=== PATIENT | female | born 1975 | race Caucasian/White ===

== ENCOUNTER → 2016-10-17 | Outpatient (REF) | payer OTHER | LOC: M SFHCWAGY 14:05 | PROVIDERS: ATTEND Nurse Practitioner Family | DX: Z12.4 Encounter for screening for malignant neoplasm of cervix (principal) ==

== ENCOUNTER → 2016-10-27 | Outpatient (CLI) | payer OTHER ==
[~2016-10-27] MED LIST: BACL-67 PO; HYDR-3716 PO; LYRI200C PO; MAGN400C3 PO; MELO15TA4 PO; OMEP40CA2 PO; POLYBTL FT; VITA200028 PO; ZONI100C2 PO
--- NOTE | 2016-10-27 11:37 | REPMRS ---
Patient History The patient states she had a clinical breast exam in 10/2016. No known family history of cancer. Digital Woman Screen Mammo: October 27, 2016 - Exam #: [id number] Bilateral CC and MLO view(s) were taken. Technologist: Xi Carranzaologist FINDINGS: There are scattered fibroglandular densities. There is no evidence of cancer on this mammogram. ASSESSMENT: BI-RADS/ACR category 2 mammogram. Benign finding(s). Recommendation Routine screening mammogram of both breasts in 1 year (for women over age 40). This mammogram was interpreted with the aid of an FDA-approved computer-aided dectection system. Electronically Signed By: Tesfaye Curtis MD 10/27/16 0707
--- NOTE | 2016-10-28 04:26 | REP ---
Clinical: Dyspareunia and pelvic pain . Technique: Transabdominal pelvic ultrasound followed by transvaginal examination for better evaluation of the endometrium and adnexa with color Doppler evaluation of the ovaries. Findings: Bladder is unremarkable and measures 10.6 x 8.8 x 5.3 cm . Heterogeneous anteverted uterus measures 6.8 x 2.7 x 4.3 cm with 2.7 cm posterior intramural fibroid and 1.6 cm anterior intramural fibroid. The endometrial complex measures 7.1 mm thickness. Subcentimeter Nabothian cysts noted. Bilateral ovaries are normal in appearance and vascularity without evidence for torsion. Right ovary measures 4.6 x 2.6 x 3.3 cm with 3.1 cm cyst ; R I = 0.51 . Left ovary measures 2.0 x 1.0 x 1.7 cm ; R I = 0.48. No pelvic fluid or adnexal mass lesion. . Impression: 1. Intramural fibroids as described above. 2. Otherwise normal pelvic ultrasound. Signed by Francisco Malin MD 10/28/2016 04:17 A
== END ==
LOC: M WHC 09:50
PROVIDERS: ATTEND Nurse Practitioner Family
DX: Z12.31 Encounter for screening mammogram for malignant neoplasm of breast (principal); N94.10 Unspecified dyspareunia; R10.2 Pelvic and perineal pain
CPT/HCPCS: 76830; 76856; G0202

== ENCOUNTER → 2016-10-28 | Outpatient (CLI) | payer OTHER ==
[~2016-10-28] VITALS: Ht 160 cm; Wt 107.0 kg
[~2016-10-28] MED LIST changes: +LIDOCAINE 2% INJ 100 MG/5 ML SDV (FOR ANES.) As Ordered ONE; +NS 1,000 ML IV ONE; +PROPOFOL 500 MG/50 ML VIAL As Ordered ONE
--- NOTE | 2016-10-28 13:41 | ROOR ---
Patient Name: Alice See Procedure Date: 10/28/2016 1:30 PM Date of : 1975 Age: 40 Room: [facility] Gender: Female Note Status: Finalized Procedure: Upper GI endoscopy Indications: Heartburn, Failure to respond to medical treatment, Suspected gastroparesis Providers: Fredrick GA MD Referring MD: Ludmila Grullon Requesting Provider: Medicines: Monitored Anesthesia Care Complications: No immediate complications. Procedure: Pre-Anesthesia Assessment: - The heart rate, respiratory rate, oxygen saturations, blood pressure, adequacy of pulmonary ventilation, and response to care were monitored throughout the procedure. The Endoscope was introduced through the mouth, and advanced to the second part of duodenum. The upper GI endoscopy was accomplished without difficulty. The patient tolerated the procedure well. Findings: The esophagus was normal. The stomach was normal. The examined duodenum was normal. Bilious fluid was found in the entire examined stomach. Impression: - Normal esophagus. - Normal stomach. (long, compliant but normal, Bilious gastric fluid.) - Normal examined duodenum. - No specimens collected. Recommendation: - Use Prilosec (omeprazole) 40 mg PO BID. - Use sucralfate tablets 1 gram PO QID. - (the script was sent to your pharmacy on file) - Gastroparesis diet: - Eat smaller, more frequent meals throughout the day. - Low fat diet. - Liquid/soft foods are tolerated better than solid foods. - Low fiber/well cooked vegetables are tolerated better than high fiber/fibrous foods/raw vegetables. - Avoid medications that inhibit gastric/intestinal motility such as narcotic medications. Fredrick Ga MD Fredrick GA MD 10/28/2016 1:40:29 PM This report has been signed electronically. Number of Addenda: 0 Note Initiated On: 10/28/2016 1:30 PM Estimated Blood Loss: Estimated blood loss: none.
[2016-10-28 13:55] VITALS: BP 123/76
== END | disposition home or self-care (01) ==
LOC: M OPP 12:09
PROVIDERS: ATTEND Internal Medicine Gastroenterology
DX: R12 Heartburn (principal); M19.90 Unspecified osteoarthritis, unspecified site; M79.7 Fibromyalgia; G43.909 Migraine, unspecified, not intractable, without status migrainosus; G47.30 Sleep apnea, unspecified; R06.83 Snoring; K21.9 Gastro-esophageal reflux disease without esophagitis; F17.210 Nicotine dependence, cigarettes, uncomplicated; Z79.899 Other long term (current) drug therapy; Z80.9 Family history of malignant neoplasm, unspecified; G56.00 Carpal tunnel syndrome, unspecified upper limb

== ENCOUNTER → 2017-02-08 | Outpatient (CLI) | payer OTHER ==
[~2017-02-08] MED LIST changes: -BACL-67 PO; +BACL1TAB9 PO; -LIDOCAINE 2% INJ 100 MG/5 ML SDV (FOR ANES.) As Ordered ONE; -NS 1,000 ML IV ONE; -PROPOFOL 500 MG/50 ML VIAL As Ordered ONE
--- NOTE | 2017-02-08 17:43 | REP ---
LEFT KNEE SERIES: Five views of the left knee are performed. There is no acute fracture or dislocation. There is a small spur of the lateral patellar facet. There is no joint effusion. IMPRESSION: Mild spurring lateral patellar facet. Signed by Tesfaye Curtis MD 02/09/2017 08:58 A
== END ==
LOC: M RAD 14:07
PROVIDERS: ATTEND Physician Assistant Medical
DX: M25.562 Pain in left knee (principal)

== ENCOUNTER → 2017-06-06 | Outpatient (CLI) | payer OTHER ==
--- NOTE | 2017-06-07 14:36 | REP ---
Clinical: Follow up ovarian cyst. Comparison: 10/27/2016. Technique: Transabdominal pelvic ultrasound followed by transvaginal examination for better evaluation of the endometrium and adnexa with color Doppler evaluation of the ovaries. Findings: Bladder is unremarkable and measures 10.6 x 6.2 x 11.1 cm. Anteverted uterus measures 7.2 x 3.5 x 3.2 cm and includes 1.8 cm posterior intramural fibroid. Endometrial complex is unremarkable and measures 5.4 mm thickness. Bilateral ovaries are normal in appearance and vascularity without torsion or significant cyst. Right ovary measures 2.7 x 1.6 x 1.5 cm; RI 0.50. Left ovary measures 2.6 x 1.5 x 1.6 cm; RI 0.48. Impression: 1. A 1.8 cm posterior intramural fibroid. 2. Otherwise normal examination and the previously identified ovarian cyst has resolved. Signed by Francisco Malin MD 06/07/2017 02:38 A
== END ==
LOC: M WHC 13:37
PROVIDERS: ATTEND Nurse Practitioner Family
DX: N83.209 Unspecified ovarian cyst, unspecified side (principal)

== ENCOUNTER → 2017-11-29 | Outpatient (REF) | payer OTHER ==
[2017-11-29 19:04] LABS: AMORPHOUS SEDIMENT MODERATE (NEGATIVE); APPEARANCE, URINE TURBID (CLEAR); BACTERIA, URINE AUTO NEGATIVE (NEGATIVE); BILIRUBIN, URINE AUTO NEGATIVE (NEGATIVE); BLOOD, URINE BLOOD NEGATIVE (NEGATIVE); COLOR, URINE YELLOW (YELLOW); GLUCOSE, URINE (UA) AUTO NEGATIVE (NEGATIVE); KETONE, URINE AUTO NEGATIVE (NEGATIVE); LEUKOCYTE ESTERASE, URINE AUTO NEGATIVE (NEGATIVE); NITRITE, URINE AUTO NEGATIVE (NEGATIVE); PROTEIN, URINE AUTO NEGATIVE (NEGATIVE); RBC, URINE AUTO 2 /HPF (0-3); SPECIFIC GRAVITY URINE AUTO 1.021 (1.002-1.035); SQUAMOUS EPITHELIAL CELL UR AU 4 /HPF (0-6); TRIPLE PHOSPHATE CRYSTALS SMALL; UROBILINOGEN, URINE AUTO 0.2 mg/dL (0.0-2.0); WBC, URINE AUTO 0 /HPF (0-3)
[2017-11-29 19:26] LABS: TOTAL 25(OH) VITAMIN D 107.2 NG/ML (30.0-100.0)
[2017-11-29 19:45] LABS: ALBUMIN 3.2 GM/DL (3.2-5.2); ALKALINE PHOSPHATASE 63 U/L (45-117); ALT/SGPT 13 U/L (12-78); ANION GAP 8 MEQ/L (8-16); AST/SGOT 9 U/L (7-37); BILIRUBIN,TOTAL 0.2 MG/DL (0.2-1.0); BLOOD UREA NITROGEN 22 MG/DL (7-18); C REACTIVE PROTEIN QUANTITATIV 1.32 MG/DL (0.00-0.30); CARBON DIOXIDE LEVEL 23 MEQ/L (21-32); CHLORIDE LEVEL 115 MEQ/L (98-107); CHOLESTEROL LEVEL 203 MG/DL (<200); CHOLESTEROL RISK RATIO 3.903 (<5); CREATININE FOR GFR 0.86 MG/DL (0.55-1.30); GLOMERULAR FILTRATION RATE > 60.0 (>58); GLUCOSE, FASTING 88 MG/DL (70-100); HDL CHOLESTEROL 52 MG/DL (>40); NON-HDL-C 151 MG/DL; POTASSIUM SERUM 4.8 MEQ/L (3.5-5.1); SODIUM LEVEL 146 MEQ/L (136-145); TOTAL PROTEIN 6.4 GM/DL (6.4-8.2); TRIGLYCERIDES LEVEL 70 MG/DL (<150)
[2017-11-29 20:31] LABS: ERYTHROCYTE SEDIMENTATION RATE 41 mm/hr (0-20)
== END ==
LOC: M LAB REF 16:46
DX: M79.89 Other specified soft tissue disorders (principal)

== ENCOUNTER → 2017-12-08 | Outpatient (CLI) | payer OTHER ==
[2017-12-08 11:41] LABS: RHEUMATOID FACTOR QUANT < 10.0 IU/ML (<15.0)
[2017-12-08 12:34] LABS: ERYTHROCYTE SEDIMENTATION RATE 37 mm/hr (0-20)
[2017-12-10 09:18] LABS: CYCLIC CITRULLINATED PEPTIDE 7 units (0-19)
[2017-12-10 09:18] LABS: ANTI DOUBLE STRAND-DNA AB 1 IU/mL (0-9); ANTINUCLEAR ANTIBODIES DIRECT Negative (Negative)
== END ==
LOC: M LAB 10:11
DX: R70.0 Elevated erythrocyte sedimentation rate (principal)
CPT/HCPCS: 36415

== ENCOUNTER → 2017-12-19 | Outpatient (CLI) | payer OTHER ==
[2017-12-19 11:46] LABS: ALBUMIN 3.2 GM/DL (3.2-5.2); ALBUMIN/GLOBULIN RATIO 0.94 (1.00-1.93); ALKALINE PHOSPHATASE 65 U/L (45-117); ALT/SGPT 16 U/L (12-78); ANION GAP 9 MEQ/L (8-16); AST/SGOT 9 U/L (7-37); BILIRUBIN,TOTAL 0.1 MG/DL (0.2-1.0); BLOOD UREA NITROGEN 25 MG/DL (7-18); CALCIUM LEVEL 8.2 MG/DL (8.5-10.1); CARBON DIOXIDE LEVEL 23 MEQ/L (21-32); CHLORIDE LEVEL 112 MEQ/L (98-107); CREATININE FOR GFR 0.96 MG/DL (0.55-1.30); GLOMERULAR FILTRATION RATE > 60.0 (>58); GLUCOSE, FASTING 87 MG/DL (70-100); POTASSIUM SERUM 4.4 MEQ/L (3.5-5.1); SODIUM LEVEL 144 MEQ/L (136-145); TOTAL PROTEIN 6.6 GM/DL (6.4-8.2)
[2017-12-20 11:20] LABS: HEPATITIS C VIRUS ABY INDEX 0.1 INDEX (<0.8)
== END ==
LOC: M LAB 10:19
DX: R70.0 Elevated erythrocyte sedimentation rate (principal)
CPT/HCPCS: 73630

== ENCOUNTER 2018-01-18 17:56 | Emergency (ER) | payer OTHER ==
[2018-01-18 21:18] LABS: BASO % 0.5 % (0.0-1.0); EOS # 0.3 10^3/uL (0.0-0.50); EOS % 3.2 % (0.0-3.0); HEMATOCRIT 38.2 % (36.0-47.0); HEMOGLOBIN 12.2 g/dl (12.0-15.5); IMMATURE GRANULOCYTE % 0.1 % (0-3.0); LYMPH # 2.3 10^3/uL (1.5-4.5); LYMPH % 28.3 % (24.0-44.0); MEAN CORPUSCULAR HEMOGLOBIN 29.6 pg (27.0-33.0); MEAN CORPUSCULAR HGB CONC 31.9 g/dl (32.0-36.5); MEAN CORPUSCULAR VOLUME 92.7 fl (80.0-96.0); MONO # 0.6 10^3/uL (0.0-0.8); MONO % 7.1 % (0.0-5.0); NEUTROPHILS # 4.9 10^3/uL (1.8-7.7); NEUTROPHILS % 60.8 % (36.0-66.0); PLATELET COUNT, AUTOMATED 203 10^3/uL (150-450); RED BLOOD COUNT 4.12 10^6/uL (4.00-5.40); RED CELL DISTRIBUTION WIDTH 14.5 % (11.5-14.5)
[2018-01-18 21:32] LABS: INR 0.98; PROTHROMBIN TIME 13.1 SECONDS (12.1-14.4)
[2018-01-18 21:33] LABS: PARTIAL THROMBOPLASTIN TIME 30.1 SECONDS (25.4-37.6)
[2018-01-18 21:42] LABS: AMORPHOUS SEDIMENT RFX LARGE (NEGATIVE); KETONE, URINE AUTO RFX NEGATIVE (NEGATIVE); LEUKOCYTE ESTERASE UR AUTO RFX NEGATIVE (NEGATIVE); NITRITE, URINE AUTO RFX NEGATIVE (NEGATIVE); RBC, URINE AUTO RFX 2 /HPF (0-3); SPECIFIC GRAVITY UR AUTO RFX 1.018 (1.002-1.035); SQUAM EPITHELIAL CELL UR AURFX 1 /HPF (0-6); WBC, URINE AUTO RFX 3 /HPF (0-3)
[2018-01-18 21:46] LABS: ALBUMIN 3.1 GM/DL (3.2-5.2); ALBUMIN/GLOBULIN RATIO 0.91 (1.00-1.93); ALKALINE PHOSPHATASE 67 U/L (45-117); ALT/SGPT 20 U/L (12-78); ANION GAP 5 MEQ/L (8-16); AST/SGOT 14 U/L (7-37); BILIRUBIN,DIRECT < 0.1 MG/DL (0.0-0.2); BILIRUBIN,TOTAL 0.2 MG/DL (0.2-1.0); BLOOD UREA NITROGEN 22 MG/DL (7-18); C REACTIVE PROTEIN QUANTITATIV 1.07 MG/DL (0.00-0.30); CALCIUM LEVEL 8.4 MG/DL (8.5-10.1); CARBON DIOXIDE LEVEL 28 MEQ/L (21-32); CHLORIDE LEVEL 111 MEQ/L (98-107); CREATININE FOR GFR 0.96 MG/DL (0.55-1.30); GLOMERULAR FILTRATION RATE > 60.0 (>58); GLUCOSE, FASTING 111 MG/DL (70-100); SODIUM LEVEL 144 MEQ/L (136-145); TOTAL PROTEIN 6.5 GM/DL (6.4-8.2)
[2018-01-18 21:55] LABS: ERYTHROCYTE SEDIMENTATION RATE 30 mm/hr (0-20)
== END 2018-01-18 22:29 | disposition home or self-care (01) ==
LOC: M ED 17:56
DX: N30.01 Acute cystitis with hematuria (principal); J45.909 Unspecified asthma, uncomplicated; J44.9 Chronic obstructive pulmonary disease, unspecified; E78.5 Hyperlipidemia, unspecified; F41.9 Anxiety disorder, unspecified; F32.9 Major depressive disorder, single episode, unspecified; E03.9 Hypothyroidism, unspecified; M54.9 Dorsalgia, unspecified; M79.7 Fibromyalgia; Z72.0 Tobacco use; Z79.899 Other long term (current) drug therapy
CPT/HCPCS: 80076

== ENCOUNTER → 2018-02-08 | Outpatient (CLI) | payer OTHER | LOC: M WUC 15:07 | DX: S80.01XA Contusion of right knee, initial encounter (principal); M25.572 Pain in left ankle and joints of left foot; M17.11 Unilateral primary osteoarthritis, right knee; X58.XXXA Exposure to other specified factors, initial encounter; Y92.9 Unspecified place or not applicable | CPT/HCPCS: 73564 ==

== ENCOUNTER → 2018-05-17 | Outpatient (REF) | payer OTHER ==
[2018-05-23 10:11] LABS: AMPHETAMINE SCREEN, URINE Negative ng/mL (Cutoff=1000); BARBITURATES SCREEN, URINE Negative ng/mL (Cutoff=200); BENZODIAZEPINES, URINE SCREEN Negative ng/mL (Cutoff=200); CANNABINOID SCREEN, URINE Negative ng/mL (Cutoff=20); COCAINE SCREEN, URINE Negative ng/mL (Cutoff=300); CODEINE, URINE Negative (Cutoff=100); CREATININE, URINE 92.7 mg/dL (20.0-300.0); FENTANYL URINE SCREEN Negative pg/mL (Cutoff=2000); HYDROCODONE CONFIRM, URINE 1500 ng/mL (Cutoff=100); HYDROCODONE, URINE Positive (.); HYDROMORPHONE CONFIRM, URINE 224 ng/mL (Cutoff=100); HYDROMORPHONE, URINE Positive (.); METHADONE, URINE SCREEN Negative ng/mL (Cutoff=300); MORPHINE, URINE Negative (Cutoff=100); OPIATE SCREEN, URINE See Final Results ng/mL (Cutoff=300); OPIATES, URINE Positive ng/mL (Cutoff=300); OXYCODONE, SCREEN, URINE Negative ng/mL (Cutoff=100); PCP SCREEN, URINE Negative ng/mL (Cutoff=25); SPECIFIC GRAVITY, URINE 1.013 (.); pH, URINE 5.6 (4.5-8.9)
== END ==
LOC: M LABNEURO 15:54
DX: G89.4 Chronic pain syndrome (principal)
CPT/HCPCS: 80307

== ENCOUNTER → 2018-11-19 | Outpatient (REF) | payer OTHER ==
[~2018-11-19] MED LIST changes: +ALPR0.25; +AMIT25TA; +CHLO50TA; +DOCQ100C5; +FURO40TA2; +HYDR-3716; +HYDROCODON; +LEVO25TA5; +MAG400TA; +MELO15TA28 PO; -MELO15TA4 PO; +POLY33503; +POLY33504 FT; -POLYBTL FT; +SERT-138; +VENTAER; +VITA50005; +ZOLP10TA2
[2018-11-19 23:25] LABS: CHLAMYDIA DNA AMPLIFICATION NEGATIVE (NEGATIVE); GC DNA AMPLIFICATION NEGATIVE (NEGATIVE)
[2018-11-22 14:51] LABS: HPV HYBRID CAPTURE II Negative (Negative)
== END ==
LOC: M SFHCWAGY 15:20
PROVIDERS: ATTEND Nurse Practitioner Family
DX: Z12.4 Encounter for screening for malignant neoplasm of cervix (principal); Z11.3 Encounter for screening for infections with a predominantly sexual mode of transmission

== ENCOUNTER → 2019-02-06 | Outpatient (REF) ==
--- NOTE | 2019-02-06 10:50 | REP ---
REASON FOR EXAM: Disability determination. COMPARISON EXAM: 05/06/2015. Three views of the lumbar spine again show slight posterior disc space narrowing at every level status quo. There is minimal anterior lipping at every level status quo. Vertebral body height and alignment is within normal limits. It is unchanged. The pedicles are intact bilaterally. IMPRESSION: No significant change from the prior exam. No acute disease is suspected. Chronic changes as described above. Electronically Signed by David Menendez DO 02/06/2019 12:38 P
--- NOTE | 2019-02-06 10:55 | REP ---
RIGHT KNEE, COMPLETE: 02/06/2019. Clinical history: Disability determination. Comparison: 02/08/2018. Findings: Five views provided. There are prominent spurs in the tibial spines. Smaller spurs medial greater than lateral joint margins. No narrowing of the medial or lateral compartments. Patellofemoral joint space narrowing and spur formation noted with the narrowing greater laterally than medially. I see no evidence of fracture, loose body, osteochondral defect or definite joint effusion. There is soft tissue calcifications representing some phleboliths in the proximal calf. Impression: 1. Tricompartment osteoarthritis with narrowing of the patellofemoral joint, no progression since the 02/08/2018 prior exam. No joint effusion, loose body, osteochondral defect or fracture. Electronically Signed by Gerardo Boswell MD 02/06/2019 11:00 A
== END ==
LOC: M SMT 09:43
PROVIDERS: ATTEND Internal Medicine
DX: Z02.71 Encounter for disability determination (principal)

== ENCOUNTER → 2019-04-01 | Outpatient (CLI) | payer OTHER ==
[~2019-04-01] MED LIST changes: -OMEP40CA2 PO; +OMEP40CA97 PO
[2019-04-01 09:41] LABS: HEMATOCRIT 42.1 % (36.0-47.0)
[2019-04-01 09:59] LABS: BASO % 0.3 % (0.0-1.0); EOS # 0.2 10^3/uL (0.0-0.5); EOS % 2.6 % (0.0-3.0); HEMATOCRIT 42.1 % (36.0-47.0); HEMOGLOBIN 14.1 g/dl (12.0-15.5); LYMPH # 2.7 10^3/uL (1.5-5.0); LYMPH % 29.5 % (24.0-44.0); MEAN CORPUSCULAR HEMOGLOBIN 31.1 pg (27.0-33.0); MEAN CORPUSCULAR HGB CONC 33.5 g/dl (32.0-36.5); MEAN CORPUSCULAR VOLUME 92.9 fl (80.0-96.0); MONO # 0.6 10^3/uL (0.0-0.8); MONO % 6.9 % (0.0-5.0); NEUTROPHILS # 5.5 10^3/uL (1.5-8.5); NEUTROPHILS % 60.4 % (36.0-66.0); PLATELET COUNT, AUTOMATED 287 10^3/uL (150-450); RED BLOOD COUNT 4.53 10^6/uL (4.00-5.40); WHITE BLOOD COUNT 9.2 10^3/uL (4.0-10.0)
[2019-04-01 10:24] LABS: HEMOGLOBIN A1c 5.1 %
[2019-04-01 10:30] LABS: ALBUMIN 3.5 GM/DL (3.2-5.2); ALT/SGPT 18 U/L (12-78); BILIRUBIN,TOTAL 0.3 MG/DL (0.2-1.0); BLOOD UREA NITROGEN 13 MG/DL (7-18); CALCIUM LEVEL 8.9 MG/DL (8.5-10.1); CARBON DIOXIDE LEVEL 28 MEQ/L (21-32); CHLORIDE LEVEL 109 MEQ/L (98-107); FERRITIN 23 NG/ML (8-252); GLOMERULAR FILTRATION RATE > 60.0 (>58); GLUCOSE, FASTING 82 MG/DL (70-100); IRON (FE) 62 UG/DL (50-170); MAGNESIUM LEVEL 1.9 MG/DL (1.8-2.4); PERCENT SATURATION 20.1 % (13.2-45.0); PHOSPHORUS LEVEL 3.5 MG/DL (2.5-4.9); POTASSIUM SERUM 3.7 MEQ/L (3.5-5.1); SODIUM LEVEL 142 MEQ/L (136-145); TOTAL IRON BINDING CAPACITY 309 UG/DL (250-450); TOTAL PROTEIN 7.1 GM/DL (6.4-8.2)
[2019-04-01 10:43] LABS: TOTAL 25(OH) VITAMIN D 66.5 NG/ML (30.0-100.0)
[2019-04-01 10:44] LABS: VITAMIN B12 LEVEL 721 PG/ML (247-911)
== END ==
LOC: M LAB 09:13
PROVIDERS: ATTEND Physician Assistant
DX: K91.2 Postsurgical malabsorption, not elsewhere classified (principal); Z98.84 Bariatric surgery status; E55.9 Vitamin D deficiency, unspecified

== ENCOUNTER → 2019-05-06 | Outpatient (CLI) | payer OTHER ==
--- NOTE | 2019-05-06 15:15 | REP ---
PELVIS ULTRASOUND: Real-time sonographic evaluation of the pelvis is performed utilizing transabdominal and endovaginal technique. Urinary bladder is collapsed. The uterus measures 6.4 x 2.9 x 3.6 cm. Endometrium is heterogeneous. A maximum AP thickness is 5 mm. Tiny cystic areas are seen diffusely throughout the endometrium. Junctional zone is not well defined. Findings could represent underlying adenomyosis. Focal hypoechoic area posteriorly in the fundus of the myometrium may represent a fibroid 1.8 x 2.2 x 1.7 cm. Right ovary measures 2.1 x 1.4 x 2.1 cm and left ovary 2.0 x 1.7 x 2.2 cm. There is no adnexal mass or free fluid. No torsion is seen of either ovary with duplex Doppler evaluation. IMPRESSION: Endometrial echo complex is heterogeneous with a maximum AP thickness of 5 mm. Tiny cystic areas are seen throughout the endometrium, a few millimeters in maximum diameter. Junctional zone is not well defined. Findings may represent adenomyosis. Suspect posterior uterine fibroid 1.8 cm in maximum diameter. No adnexal mass or free fluid. Electronically Signed by Tesfaye Curtis MD 05/08/2019 10:21 A
== END ==
LOC: M RAD 12:56
PROVIDERS: ATTEND Nurse Practitioner Family
DX: N93.9 Abnormal uterine and vaginal bleeding, unspecified (principal)

== ENCOUNTER → 2019-06-21 | Outpatient (CLI) | payer OTHER ==
--- NOTE | 2019-06-21 12:50 | REPMRS ---
Patient History The patient states she had a clinical breast exam in 03/2019. No known family history of cancer. No Hormone Replacement Therapy Digital Woman Screen Mammo: June 21, 2019 - Exam #: [id number] Bilateral CC and MLO view(s) were taken. Technologist: Herlinda Jackson, Technologist Prior study comparison: October 27, 2016, digital woman screen mammo performed at [facility]. FINDINGS: There are scattered fibroglandular densities. There has been no change in the appearance of the mammogram from the prior studies. There is a mild amount of scattered fibroglandular density which is fairly symmetric. There is no interval development of dominant mass, architectural distortion, or grouped microcalcification suggestive of malignancy. 3-D tomosynthesis shows no additional findings. Assessment: BI-RADS/ACR category 1 mammogram. Negative Mammogram. Recommendation Routine screening mammogram of both breasts in 1 year (for women over age 40). This patient's Lifetime Breast Cancer Risk is estimated at 8.0 %. This mammogram was interpreted with the aid of an FDA-approved computer-aided dectection system. Electronically Signed By: Fer Shipley MD 06/21/19 [id number]
== END ==
LOC: M WHC 11:11
PROVIDERS: ATTEND Nurse Practitioner Family
DX: Z12.31 Encounter for screening mammogram for malignant neoplasm of breast (principal)

== ENCOUNTER → 2020-07-29 | Outpatient (CLI) | payer OTHER ==
[~2020-07-29] MED LIST changes: -AMIT25TA; +AMIT25TA17; +ATOR40TA75 PO; +CALC250T PO; +FURO40TA2 PO; +HYDR-3719 PO; +LEVO30TA PO; -MAG400TA; +MAGN400T35; +METH-1165 PO; +OMEP-221 PO; +PREG200C PO; +SUMA100T2 PO; +TOPR25TA PO; +TRAZ-189 PO; -VENTAER; +VENTAER INH; +VITMTA PO; +ZONI100C17 PO; -ZONI100C2 PO
== END ==
LOC: M LABSMTC 11:20
PROVIDERS: ATTEND Anesthesiology
DX: Z20.828 Contact with and (suspected) exposure to other viral communicable diseases (principal)

== ENCOUNTER 2020-08-03 06:23 | Day surgery (SDC) | payer OTHER ==
[~2020-08-03] VITALS: Ht 160 cm; Wt 78.5 kg
[~2020-08-03 06:23] MED LIST changes: +LIDOCAINE 1% MDV 20ML VIAL SQ PRN; +LR 1,000 ML IV ONE
--- OUTSIDE RECORDS SUMMARY | 2020-08-03 06:27 | CCD | Continuity of Care Document ---
Author Author Alice HERNANDEZ Organization Unknown Address [address] [place] [address] Phone [phone] Care Team Providers Care Microsoft Bi Developer Name Role Phone JORGE HERNANDEZ AUTM [phone] Social History Type Date Description Comments Sex Unknown Medications Active Medications SIG Qnty Indications Ordering Provide r Date Metoprolol Succinate ER 25mg Tablets ER 24HR take one tablet by mouth daily at bedtime 90tabs [facility] 04/30/2020 Hydrocodone-Acetaminophen 7.5-325mg Tablets Alice Willingham Diclofenac Sodium 1% Gel Apply To Affected Area S 1 Gram Three Times A Day as Directed Unk nown Sucralfate 1gm Tablets Unknown Fluconazole 150mg Tablets Jorge Hernandez Tizanidine HCL 4mg Tablets Take One Tablet By Mouth Three Times A Day Maximum Daily Dose 3 Unknown Albuterol Sulfate HFA 108(90Base) mcg/Act Aerosol Inhale 2 Puffs By Mouth Every 4 Hours as Needed For Sh ortness Of Breath Unknown Misoprostol 200mcg Tablets Take One Tablet By Mouth Four Times A Day AT Meals And AT Bedtime Unknown Dok 100mg Capsules Alice Willingham Atorvastatin Calcium 40mg Tablets Jorge Hernandez Furosemide 40mg Tablets Jorge Hernandez Levothyroxine Sodium 25mcg Tablets Take One Tablet By Mouth Every Day Unknown Pregabalin 200mg Capsules Alice Willingham Easivent Misc T o Be Used With Her Inhalers Unknown Famotidine 40mg Tablets Take 1 Tablet By Mouth Twice Daily Unknown Trazodone HCL 100mg Tablets Jorge Hernandez Methocarbamol 750mg Tablets Take One Tablet By Mouth Three Times A Day as Needed Maximum Daily Dose 3 Unknown Omeprazole 40mg Capsules DR Unknown Hydrocodone-Acetaminophen 10-325mg Tablets Take One Tablet By Mouth Three Times A D ay as Needed For Pain Maximum Daily Dosethree Tablets Unknown Sumatriptan Succinate 100mg Tablets JudithAlice teixeira Abrahan Vital Signs Date Vital Result Comment 04/30/2020 3:27pm Height 63 inches 5'3" Weight 171.00 lb BMI (Body Mass Index) 30.3 kg/m2 Body Temperature 97.1 F BP Systolic 138 mmHg BP Diastolic 83 mmHg Heart Rate 77 /min O2 % BldC Oximetry 97 % Procedures Date Code Description Status 04/17/2020 93894 24 Hour Holter Monitoring Comple yakov 04/15/2020 62720 Echocardiogram, Complete Complet ed 04/15/2020 85129 Multistage Exercise Stress Test Completed 03/20/2020 99250 EKG Completed Encounters Type Date Location Provider Dx Diagnosis Office Visit 06/23/2020 8:30a [facility] BLAYNE [place] I10 Essential (primary) hyperten chris E78.5 Hyperlipidemia, unspecified E03.9 Hypothyroidism, unspecified Office Visit 04/30/2020 3:00p [facility] I10 Essential (primary) hypertension I49.49 Other premature depolarizati on Office Visit 04/15/2020 1:45p [facility] R00.2 Palpitations I11.9 Hypertensive heart disease w ithout heart failure I34.0 Nonrheumatic mitral (valve) insufficiency I25.9 Chronic ischemic heart disea se, unspecified Assessments Date Code Description Provider 06/23/2020 I10 Essential (primary) hypertension BLAYNE Quintanilla 06/23/2020 E78.5 Hyperlipidemia, unspecified Fadi bettie G Tontarski, PA 06/23/2020 E03.9 Hypothyroidism, unspecified Fadi Hernandez, BLAYNE 05/04/2020 J01.10 Acute frontal sinusitis, unspeci fied Jorge Hernandez, BLAYNE 05/04/2020 J44.9 Chronic obstructive pulmonary di sease, unspecified BLAYNE Quintanilla 04/30/2020 I10 Essential (primary) hypertension [facility] 04/30/2020 I49.49 Other premature depolarization M jorden Franc[facility] 04/17/2020 R00.2 Palpitations BLAYNE Warren 04/15/2020 R00.2 Palpitations Halie Benoit, P.[facility]. 04/15/2020 I11.9 Hypertensive heart disease witho ut heart failure [facility] 04/15/2020 I34.0 Nonrheumatic mitral (valve) insu fficiency [facility] 04/15/2020 I25.9 Chronic ischemic heart disease, unspecified [facility] 03/20/2020 I10 Essential (primary) hypertension BLAYNE Quintanilla 03/20/2020 E78.5 Hyperlipidemia, unspecified BLAYNE Dowling 03/20/2020 E03.9 Hypothyroidism, unspecified BLAYNE Dowling 03/20/2020 R00.2 Palpitations BLAYNE Warren Plan of Treatment Future Appointment(s):* 09/22/2020 12:30 pm - BLAYNE Quintanilla at [facility] Referrals Refer to Dr King for Referral Status Appt Date Som Francois M.D. Closed [address] [place], [place] [id number] [phone] Som Francois M.D. PATIENT WITH RECENT PALPITAT IONS, PLEASE TO CARDIAC CONSULT. Sent [address] [place] [address] [phone] Ervin Becker MD PATIENT WITH C/O BILATERAL FOOT PAIN. PL EASE EVAL AND TREAT. Sent Ran Becker MD [address] [address] [phone]
--- OUTSIDE RECORDS SUMMARY | 2020-08-03 06:27 | CCD | Continuity of Care Document ---
Author Author Alice HERNANDEZ Organization Unknown Address [address] [facility] [address] [place] [address] Phone [phone] Care Team Providers Care Gun Examiner Name Role Phone JORGE HERNANDEZ AUTM [phone] Social History Type Date Description Comments Sex [...] Dosethree Tablets Unknown Sumatriptan Succinate 100mg Tablets Alice Willingham Vital Signs Date Vital Result Comment 04/30/2020 3:27pm Height 63 inches 5'3" Weight 171.00 lb BMI (Body Mass Index) 30.3 kg/m2 Body Temperature 97.1 F BP Systolic 138 mmHg BP Diastolic 83 mmHg Heart Rate 77 /min O2 % BldC Oximetry 97 % Procedures Date Code Description Status 04/17/2020 75559 24 Hour Holter Monitoring Comple yakov 04/15/2020 13798 Echocardiogram, Complete Complet ed 04/15/2020 43684 Multistage Exercise Stress Test Completed 03/20/2020 13992 EKG Completed Encounters Type Date Location Provider Dx Diagnosis Office Visit 07/02/2020 12:30p [facility] BLAYNE [place] L05.01 Pilonidal cyst with abscess M79.7 Fibromyalgia K21.9 Gastro-esophageal reflux dis ease without esophagitis Office Visit 06/23/2020 8:30a [facility] BLAYNE [place] I10 Essential (primary) hyperten chris E78.5 Hyperlipidemia, unspecified E03.9 Hypothyroidism, unspecified Office Visit 04/30/2020 3:00p [facility] I10 Essential (primary) hypertension I49.49 Other premature depolarizati on Office Visit 04/15/2020 1:45p [facility] R00.2 Palpitations I11.9 Hypertensive heart disease w ithout heart failure I34.0 Nonrheumatic mitral (valve) insufficiency I25.9 Chronic ischemic heart disea se, unspecified Assessments Date Code Description Provider 07/02/2020 L05.01 Pilonidal cyst with abscess Fadi Hernandez, PA 07/02/2020 M79.7 Fibromyalgia Jorge Nishant Melanie de leon, PA 07/02/2020 K21.9 Gastro-esophageal reflux disease without esophagitis Jorge Hernandez, PA 06/23/2020 I10 Essential (primary) hypertension Jorge Hernandez, PA 06/23/2020 E78.5 Hyperlipidemia, unspecified Fadi Hernandez, PA 06/23/2020 E03.9 Hypothyroidism, unspecified Fadi Hernandez, PA 05/04/2020 J01.10 Acute frontal sinusitis, unspeci fied Jorge Hernandez, PA 05/04/2020 J44.9 Chronic obstructive pulmonary di sease, unspecified Jorge Hernandez, PA 04/30/2020 I10 Essential (primary) hypertension [facility] 04/30/2020 I49.49 Other premature depolarization M jorden Francois [facility] 04/17/2020 R00.2 Palpitations Jorge de leon, PA 04/15/2020 R00.2 Palpitations Halie Benoit, [facility] 04/15/2020 I11.9 Hypertensive heart disease witho ut heart failure [facility] 04/15/2020 I34.0 Nonrheumatic mitral (valve) insu fficiency [facility] 04/15/2020 I25.9 Chronic ischemic heart disease, unspecified Som [facility] 03/20/2020 I10 Essential (primary) hypertension Jorge Hernandez, PA 03/20/2020 E78.5 Hyperlipidemia, unspecified Fadi Hernandez, PA 03/20/2020 E03.9 Hypothyroidism, unspecified Fadi Hernandez, PA 03/20/2020 R00.2 Palpitations BLAYNE Warren Plan of Treatment Future Appointment(s):* 09/22/2020 12:30 pm - BLAYNE Quintanilla at [facility] Referrals Refer to Reason for Referral Status Appt Date [facility] PLEASE EVAL AND TREAT THIS PT WITH A DRAINING LESION AT THE TOP OF HER BUTTOCK AREA THAT IS INCREASINGLY BECOMING MORE PAINFUL WHICH IS SUSPICIOUS FOR A PILONIDAL CYST. THANK YOU FOR YOUR EVALUATION OF THIS PT. Sent 07/14/2020 [address] [facility] [address] [place] [phone] Som Francois M.D. Closed [address] [place] [address] [phone] Som Francois M.D. PATIENT WITH RECENT PALPITAT IONS, PLEASE TO CARDIAC CONSULT. Sent [address] [place] [address] [phone] Ervin Becker MD PATIENT WITH C/O BILATERAL FOOT PAIN. PL EASE EVAL AND TREAT. Sent Ran Becker MD [address] [facility] [address] [place] [address] [phone]
--- OUTSIDE RECORDS SUMMARY | 2020-08-03 06:27 | CCD | Continuity of Care Document ---
Author Author Alice VILLATORO DPM Organization Unknown Address [address] [place] [address], [address] [place] [address] Phone [phone] Care Team Providers Care Instructional Services Librarian Name Role Phone Dawood Hernandez AUTM [phone] Problems Active Problems Provider Date Plantar fascial fibromatosis Ran Villatoro DPM Onset: Social History Type Date Description Comments Sex Unknown ETOH Use Denies alcohol use Tobacco Use Start: Unknown Patient is a current smoker, smo kes every day 1/2 pack daily x34 years Allergies, Adverse Reactions, Alerts Description No Known Drug Allergies Medications Active Medications SIG Qnty Indications Ordering Provide r Date Hydroxyzine HCL 25mg Tablets Take One Tablet By Mouth Every 6 Hours as Needed Unknown Hydrocodone-Acetaminophen 7.5-325mg Tablets Take One Tablet By Mouth Three Times A D ay as Needed Maximum Daily Dose 3 Tablets Unknown Diclofenac Sodium 1% Gel Apply To Affected Area S 1 Gram Three Times A Day as Directed Unk nown Sucralfate 1gm Tablets Unknown Amoxicillin/Clavulanate Potassium 875-125mg Tablets Jorge Hernandez Fluconazole 150mg Tablets Take 1 Tablet By Mouth Once A Week Unknown Tizanidine HCL 4mg Tablets Take One Tablet By Mouth Three Times A Day Maximum Daily Dose 3 Unknown Albuterol Sulfate HFA 108(90Base) mcg/Act Aerosol Inhale 2 Puffs By Mouth Every 4 Hours as Needed For Sh ortness Of Breath Unknown Misoprostol 200mcg Tablets Take One Tablet By Mouth Four Times A Day AT Meals And AT Bedtime Unknown Dok 100mg Capsules Take 1 Capsule By Mouth Every Evening AT Bedtime Maximum Daily Dose 1 Unknown Omeprazole 40mg Capsules DR Take 1 Capsule 40MG By Mouth Daily 30 Minutes Before Morning Meal Unknown Atorvastatin Calcium 40mg Tablets Take One Tablet By Mouth AT Bedtime Unknown Furosemide 40mg Tablets Take 1 Tablet By Mouth Once A Day Unknown Levothyroxine Sodium 25mcg Tablets Take One Tablet By Mouth Every Day Unknown Pregabalin 200mg Capsules Alice Medina Hydrocodone-Acetaminophen 10-325mg Tablets Unknown Sumatriptan Succinate 100mg Tablet s Take 1 Tablet By Mouth Two Times A Day as Needed For Headaches Max Daily Dose 2Tablets Unknown Easivent Misc T o Be Used With Her Inhalers Unknown Famotidine 40mg Tablets Unknown Trazodone HCL 100mg Tablets Jorge Hernandez Cefdinir 300mg Capsules Jorge Hernandez Methocarbamol 750mg Tablets Alice Medina Immunizations Description No Information Available Vital Signs Date Vital Result Comment 03/31/2020 7:55am Height 63 inches 5'3" Weight 175.00 lb BP Systolic 107 mmHg BP Diastolic 83 mmHg Heart Rate 82 /min BMI (Body Mass Index) 31.0 kg/m2 Results Description No Information Available Procedures Date Code Description Status 03/31/2020 62096 X-Ray Foot Complete Completed 03/31/2020 72339 X-Ray Foot Complete Completed 03/31/2020 83248 Strapping Foot Or Ankle Complete d 03/31/2020 84577 Strapping Foot Or Ankle Complete d Medical Devices Description No Information Available Encounters Type Date Location Provider Dx Diagnosis Office Visit 03/31/2020 9:15a [place] Office Ran Villatoro DPM M72.2 Plantar fascial fibromatosis M72.2 Plantar fascial fibromatosis Assessments Date Code Description Provider 03/31/2020 M72.2 Plantar fascial fibromatosis And david Villatoro DPM 03/31/2020 M72.2 Plantar fascial fibromatosis And david Villatoro DPM Plan of Treatment Future Appointment(s):* 05/29/2020 2:15 pm - Ran Villatoro DPM at [facility] Functional Status Description No Information Available Mental Status Description No Information Available Referrals Description No Information Available
--- OUTSIDE RECORDS SUMMARY | 2020-08-03 06:27 | CCD | Continuity of Care Document ---
Author Author Alice RICHARDSON MD Organization Unknown Address [address] [place] [address] Phone [phone] Care Team Providers Care Drag Out Worker Name Role Phone MaulikAlice GHANSHYAM AUTM [phone] Jorge Hernandez AUTM Problems Description No Information Available Social History Type Date Description Comments Sex Unknown ETOH Use Denies alcohol use Tobacco Use Start: Unknown End: Unknown Patient is a former smoker Allergies, Adverse Reactions, Alerts Description No Known Drug Allergies Medications Active Medications SIG Qnty Indications Ordering Provide r Date Diclofenac Sodium 1% Gel Apply 1 Gram To Affected Area Three Times A Day as Directed 100units M17.11 Dominique Mallory MD 11/21/2018 Multivitamin Adult Extra Vitamin C Chewtabs M17.11 Unknown Omeprazole 10mg Capsules DR 1 by mouth twice a day M17.11 Unknown Tizanidine HCL 2mg Capsules 1-2 by mouth three times a day as needed M17.11 Unknown 0 Hydrocodone Bitartrate/Acetaminophen 5-325mg Tablets 1 tab by mouth every 6 hours prn/pain M17.11 Unk nown Immunizations Description No Information Available Vital Signs Date Vital Result Comment 09/18/2018 9:40am Body Temperature 97.3 F Height 63 inches 5'3" Weight 255.00 lb BMI (Body Mass Index) 45.2 kg/m2 Results Description No Information Available Procedures Description No Information Available Medical Devices Description No Information Available Encounters Type Date Location Provider Dx Diagnosis Office Visit 06/08/2020 1:00p [facility] Richardson MD M17. 11 Unilateral primary osteoarthritis, right knee Assessments Date Code Description Provider 06/08/2020 M17.11 Unilateral primary osteoarthriti s, right knee Ran Richardson MD Plan of Treatment 06/08/2020 - Ran Richardson MD* M17.11 Unilateral primary osteoarthritis, right knee* Follow up:* please do not charge pat for this visit per ANM f/u as need but patient may call to get inj per ANM Functional Status Description No Information Available Mental Status Description No Information Available Referrals Description No Information Available
--- OUTSIDE RECORDS SUMMARY | 2020-08-03 06:27 | CCD | Continuity of Care Document ---
Author Author Alice DUMONT DO Organization Unknown Address [address] [facility], [address] [place] [address] Phone [phone] Care Team Providers Care Home Health Care Physician Name Role Phone Jorge Hernandez AUTM Problems Description No Active Problems Social History Type Date Description Comments Sex Unknown ETOH Use Denies alcohol use Recreational Drug Use Denies Drug Use Tobacco Use Start: Unknown Patient is a current smoker, smo kes every day 1/2 -1 PPD X34 YRS Allergies, Adverse Reactions, Alerts Description No Known Drug Allergies Medications Active Medications SIG Qnty Indications Ordering Provide r Date Omeprazole 40mg Capsules DR 1 by mouth twice a day 60caps Fredrick Grace MD 10/13/2016 Hydrocodone-Acetaminophen 10-325mg Tablets four times a day as needed 30tabs Unknown 0 Methocarbamol 750mg Tablets Take 1 Tablet By Mouth Three Times A Day Maximum Daily Dose 3 Unknown Furosemide 40mg Tablets ev hakeem day 30tabs Jorge Hernandez PA Levothyroxine Sodium 25mcg Tablets Take One Tablet By Mouth Every Day Unknown Metoprolol Succinate ER 25mg Tablets ER 24HR Take One Tablet By Mouth Every Evening AT Bedtime Unknown Womens Multivitamin Tablets every day Unknown Calcium 600 + D [id number] Tab lets 2 tabs twice a day Unknown Immunizations Description No Information Available Vital Signs Date Vital Result Comment 07/14/2020 8:32am BP Systolic 130 mmHg BP Diastolic 70 mmHg Height 63 inches 5'3" Weight 176.00 lb BMI (Body Mass Index) 31.2 kg/m2 Roann Body Weight 115 lb Weight 79.834 kg BSA (Body Surface Area) 1.83 m2 10/13/2016 3:04pm BP Systolic 141 mmHg BP Diastolic 91 mmHg Height 63 inches 5'3" Weight 240.00 lb BMI (Body Mass Index) 42.5 kg/m2 Roann Body Weight 115 lb Weight 108.864 kg BSA (Body Surface Area) 2.09 m2 Results Description No Information Available Procedures Description No Information Available Medical Devices Description No Information Available Encounters Description No Information Available Assessments Description No Information Available Plan of Treatment 10/13/2016 - Fredrick Grace MD* K21.9 Gastro-esophageal reflux disease without esophagitis * R07.89 Other chest pain * * New Orders:* EGD/Upper Endoscopy, Scheduled: 10/28/16 * Comments:* probably has a degree of gastric emptying delay related to narcotic meds. (gastroparesis) -- * Recommendations:* increase PPI to BID, smaller more frequebnt low fat meals. Will do EGD to further eval Functional Status Description No Information Available Mental Status Description No Information Available Referrals Refer to Reason for Referral Status Appt Date Tesfaye Dumont D.O. PILONIDAL CYST Scheduled 07/14/[address] [place] [address] [phone]
--- OUTSIDE RECORDS SUMMARY | 2020-08-03 06:27 | CCD | Continuity of Care Document ---
Author Author Alice VILLATORO DPM Organization Unknown Address [address] [place] [address], [address] [place] [address] Phone [phone] Care Team Providers Care Senior Mobile Solutions Architect Name Role Phone Dawood Hernandez AUTM [phone] Problems Active Problems Provider Date Plantar fascial [...] Available Procedures Date Code Description Status 03/31/2020 22703 X-Ray Foot Complete Completed 03/31/2020 01380 X-Ray Foot Complete Completed 03/31/2020 55596 Strapping Foot Or Ankle Complete d 03/31/2020 23111 Strapping Foot Or Ankle Complete d Medical Devices Description No Information Available Encounters Type Date Location Provider Dx Diagnosis Office Visit 03/31/2020 9:15a [facility] Ran Villatoro DPM M72.2 Plantar fascial fibromatosis M72.2 Plantar fascial fibromatosis Assessments Date Code Description Provider 03/31/2020 M72.2 Plantar fascial fibromatosis And david Villatoro DPM 03/31/2020 M72.2 Plantar fascial fibromatosis And david Villatoro DPM Plan of Treatment Future Appointment(s):* 05/29/2020 2:15 pm - Ran Villatoro DPM at [facility] Functional Status Description No Information Available Mental Status Description No Information Available Referrals Description No Information Available
--- OUTSIDE RECORDS SUMMARY | 2020-08-03 06:27 | CCD | Continuity of Care Document ---
Author Author Alice RICHARDSON MD Organization Unknown Address [address] [place] [address] Phone [phone] Care Team Providers Care Hydroponics Worker Name Role Phone MaulikAlice GHANSHYAM AUTM [phone] Jorge Hernandez AUTM Problems Description No Information [...] Available Encounters Description No Information Available Assessments Date Code Description Provider 06/08/2020 M17.11 Unilateral primary osteoarthriti s, right knee Ran Richardson MD Plan of Treatment 06/08/2020 - Ran Richardson MD* M17.11 Unilateral primary osteoarthritis, right knee* New Xrays:* Fluoroscopic Guided Steroid Injection Right Kne, Ordered: 06/08/20 * Follow up:* please do not charge pat for this visit per ANM f/u as need but patient may call to get inj per ANM Functional Status Description No Information Available Mental Status Description No Information Available Referrals Description No Information Available
--- OUTSIDE RECORDS SUMMARY | 2020-08-03 06:27 | CCD | Continuity of Care Document ---
Author Author Alice HERNANDEZ Organization Unknown Address [address] [facility] [address] [place] [address] Phone [phone] Care Team Providers Care Pecan Picker Name Role Phone JORGE HERNANDEZ AUTM [phone] Social History Type Date Description Comments Sex [...] % Procedures Date Code Description Status 04/17/2020 65603 24 Hour Holter Monitoring Comple yakov 04/15/2020 26761 Echocardiogram, Complete Complet ed 04/15/2020 84229 Multistage Exercise Stress Test Completed 03/20/2020 33559 EKG Completed Encounters Type Date Location Provider Dx Diagnosis Office Visit 07/13/2020 11:00a [facility] [place] R05 Cough R09.81 Nasal congestion Z11.52 Encounter for screening for Covid-19 Office Visit 07/02/2020 12:30p [facility] [place] L05.01 Pilonidal cyst with abscess M79.7 Fibromyalgia K21.9 Gastro-esophageal reflux dis ease without esophagitis Office Visit 06/23/2020 8:30a [facility] B[place] I10 Essential (primary) hyperten chris E78.5 Hyperlipidemia, unspecified E03.9 Hypothyroidism, unspecified Office Visit 04/30/2020 3:00p [facility] I10 Essential (primary) hypertension I49.49 Other premature depolarizati on Office Visit 04/15/2020 1:45p [facility] R00.2 Palpitations I11.9 Hypertensive heart disease w [facility] heart failure I34.0 Nonrheumatic mitral (valve) insufficiency I25.9 Chronic ischemic heart disea se, unspecified Assessments Date Code Description Provider 07/13/2020 R05 Cough Jorge de leon, BLAYNE 07/13/2020 R09.81 Nasal congestion Jorge trimble, BLAYNE 07/13/2020 Z11.52 Encounter for screening for Covi d-19 Jorge Hernandez, BLAYNE 07/02/2020 L05.01 Pilonidal cyst with abscess Fadi Hernandez, BLAYNE 07/02/2020 M79.7 Fibromyalgia Jorge de leon, BLAYNE 07/02/2020 K21.9 Gastro-esophageal reflux disease without esophagitis Jorge Hernandez, BLAYNE 06/23/2020 I10 Essential (primary) hypertension Jorge Hernandez, BLAYNE 06/23/2020 E78.5 Hyperlipidemia, unspecified Fadi Hernandez, PA [...] 09/22/2020 12:30 pm - BLAYNE Quintanilla at [facility] Referrals Refer to Reason for Referral Status Appt Date [facility] PLEASE EVAL AND TREAT THIS PT WITH A DRAINING LESION AT THE TOP OF HER BUTTOCK AREA THAT IS INCREASINGLY BECOMING MORE PAINFUL WHICH IS SUSPICIOUS FOR A PILONIDAL CYST. THANK YOU FOR YOUR EVALUATION OF THIS PT. Sent 07/14/2020 [address]26 [facility] [address] [place] [phone] Som Francois M.D. Closed [address] [place] [address] [phone] Som Francois M.D. PATIENT WITH RECENT PALPITAT IONS, PLEASE TO CARDIAC CONSULT. Sent [address] [place] [address] [phone] Ervin Becker MD PATIENT WITH C/O BILATERAL FOOT PAIN. PL EASE EVAL AND TREAT. Sent Ran Becker MD [address] [facility] [address] [place] [address] [phone]
--- OUTSIDE RECORDS SUMMARY | 2020-08-03 06:28 | CCD ---
Author Author [facility] Organization [facility] Address Unknown Phone Unavailable Support Name Relationship Address Phone [facility] [place] [address] Meli Parra Next Of Kin Unknown Unavailable ZIGGY PARRA Next Of Kin [address] [place] [address] Brina Eddy Next Of Kin [address] [place] [address] Rae Waldrop Next Of Kin [address] [place], [place] [id number] [place] [address] CASSIE PARRA Next Of Kin [address] [place] [address] CHERRIE Next Of Kin [address] [address] JOSE PARRA Next Of [place] [address] ALEKSANDAR PARRA Next Of Kin [address] [facility] [address] [place] [address] PR[place]CHOP Next Of Kin [address] [facility] [address] [place] [address] NONE, NONE NONE Next [place] [address] FAMILY [place] [address] UE Next Of Kin Unknown Unavailable [place] [employer] Next Of Kin [address] [place] [address] FLORI BRENNAN Next Of Kin [phone] [place] [address] ANTIOCH Next Of Kin [address] [place] [address] SARAH FIGUEROA Next Of Kin [address] [place] [address] ALEKSANDAR PARRA ECON Unknown Unavailable SommerManavwn ECON Unknown Unavailable Care Team Providers Care Field Underwriter Name Role Phone Holland VILLATORO DPM Unavailable Unavailable Holland VILLATORO DPM Unavailable Unavailable Holland VILLATORO DPM Unavailable Unavailable Holland VILLATORO DPM Unavailable Unavailable oHlland VILLATORO DPM Unavailable Unavailable Holland VILLATORO DPM Unavailable Unavailable Holland VILLATORO DPM Unavailable Unavailable oHlland VILLATORO DPM Unavailable Unavailable Holland VILLATORO DPM Unavailable Unavailable Holland VILLATORO DPM Unavailable Unavailable Holland VILLATORO DPM Unavailable Unavailable Holland VILLATORO DPM Unavailable Unavailable Holland VILLATORO DPM Unavailable Unavailable Holland VILLATORO DPM Unavailable Unavailable Holland VILLATORO DPM Unavailable Unavailable Holland VILLATORO DPM Unavailable Unavailable Holland VILLATORO DPM Unavailable Unavailable Holland VILLATORO DPM Unavailable Unavailable Holland VILLATORO DPM Unavailable Unavailable Holland VILLATORO DPM Unavailable Unavailable Holland VILLATORO DPM Unavailable Unavailable Holland VILLATORO DPM Unavailable Unavailable Holland VILLATORO DPM Unavailable Unavailable Holland VILLATORO DPM Unavailable Unavailable Holland VILLATORO DPM Unavailable Unavailable Holland VILLATORO DPM Unavailable Unavailable Holland VILLATORO DPM Unavailable Unavailable Holland VILLATORO DPM Unavailable Unavailable Holland VILLATORO DPM Unavailable Unavailable Holland VILLATORO DPM Unavailable Unavailable Trickey, J Alice PA Unavailable Unavailable Trickey, J Alice PA Unavailable Unavailable Trickey, J Alice PA Unavailable Unavailable Trickey, J Alice PA Unavailable Unavailable Trickey, J Alice PA Unavailable Unavailable Trickey, J Alice PA Unavailable Unavailable Trickey, J Alice PA Unavailable Unavailable Trickey, J Alice PA Unavailable Unavailable Trickey, J Alice PA Unavailable Unavailable Trickey, J Alice PA Unavailable Unavailable Trickey, J Alice PA Unavailable Unavailable Trickey, J Alice PA Unavailable Unavailable Trickey, J Alice PA Unavailable Unavailable Trickey, J Alice PA Unavailable Unavailable Trickey, J Alice PA Unavailable Unavailable Trickey, J Alice PA Unavailable Unavailable Trickey, J Alice PA Unavailable Unavailable Trickey, J Alice PA Unavailable Unavailable Trickey, J Alice PA Unavailable Unavailable Trickey, J Alice PA Unavailable Unavailable Trickey, J Alice PA Unavailable Unavailable Trickey, J Alice PA Unavailable Unavailable Trickey, J Alice PA Unavailable Unavailable Trickey, J Alice PA Unavailable Unavailable Trickey, J Aliec PA Unavailable Unavailable Trickey, J Alice PA Unavailable Unavailable Trickey, J Alice PA Unavailable Unavailable Trickey, J Alice PA Unavailable Unavailable Trickey, J Alice PA Unavailable Unavailable Trickey, J Alice PA Unavailable Unavailable Trickey, J Alice PA Unavailable Unavailable Trickey, J Alice PA Unavailable Unavailable Trickey, J Alice PA Unavailable Unavailable Trickey, J Alice PA Unavailable Unavailable Trickey, J Alice PA Unavailable Unavailable Trickey, J Alice PA Unavailable Unavailable Trickey, J Alice PA Unavailable Unavailable Trickey, J Alice PA Unavailable Unavailable Trickey, J Alice PA Unavailable Unavailable Trickey, J Alice PA Unavailable Unavailable Trickey, J Alice PA Unavailable Unavailable Trickey, J Alice PA Unavailable Unavailable Trickey, J Alice PA Unavailable Unavailable Trickey, J Alice PA Unavailable Unavailable Trickey, J Alice PA Unavailable Unavailable Trickey, J Alice PA Unavailable Unavailable Trickey, J Alice PA Unavailable Unavailable Trickey, J Alice PA Unavailable Unavailable Trickey, J Alice PA Unavailable Unavailable Trickey, J Alice PA Unavailable Unavailable Trickey, J Alice PA Unavailable Unavailable Trickey, J Alice PA Unavailable Unavailable AMERICA FRANCOIS MD Unavailable Unavailable AMERICA FRANCOIS MD Unavailable Unavailable AMERICA FRANCOIS MD Unavailable Unavailable AMERICA FRANCOIS MD Unavailable Unavailable AMERICA FRANCOIS MD Unavailable Unavailable AMERICA FRANCOIS MD Unavailable Unavailable AMERICA FRANCOIS MD Unavailable Unavailable AMERICA FRANCOIS MD Unavailable Unavailable AMERICA FRANCOIS MD Unavailable Unavailable AMERICA FRANCOIS MD Unavailable Unavailable AMERICA FRANCOIS MD Unavailable Unavailable AMERICA FRANCOIS MD Unavailable Unavailable ARIS, MAQBOOL JAIR MD Unavailable Unavailable ARIS, MAQBOOL JAIR MD Unavailable Unavailable ARIS, MAQBOOL JAIR MD Unavailable Unavailable ARIS, MAQBOOL JAIR MD Unavailable Unavailable ARIS, MAQBOOL JAIR MD Unavailable Unavailable ARIS, MAQBOOL JAIR MD Unavailable Unavailable ARIS, MAQBOOL JAIR MD Unavailable Unavailable ARIS, MAQBOOL JAIR MD Unavailable Unavailable ARIS, MAQBOOL JAIR MD Unavailable Unavailable ARIS, MAQBOOL JAIR MD Unavailable Unavailable ARIS, MAQBOOL JAIR MD Unavailable Unavailable ARIS, MAQBOOL JAIR MD Unavailable Unavailable ARIS, MAQBOOL JAIR MD Unavailable Unavailable ARIS, MAQBOOL JAIR MD Unavailable Unavailable ARIS, MAQBOOL JAIR MD Unavailable Unavailable ARIS, MAQBOOL JAIR MD Unavailable Unavailable ARIS, MAQBOOL JAIR MD Unavailable Unavailable ARIS, MAQBOOL JAIR MD Unavailable Unavailable ARIS, MAQBOOL JAIR MD Unavailable Unavailable ARIS, MAQBOOL JAIR MD Unavailable Unavailable ARIS, MAQBOOL JAIR MD Unavailable Unavailable ARIS, MAQBOOL JAIR MD Unavailable Unavailable ARIS, MAQBOOL JAIR MD Unavailable Unavailable ARIS, MAQBOOL JAIR MD Unavailable Unavailable ARIS, MAQBOOL JAIR MD Unavailable Unavailable ARIS, MAQBOOL JAIR MD Unavailable Unavailable ARIS, MAQBOOL JAIR MD Unavailable Unavailable ARIS, MAQBOOL JAIR MD Unavailable Unavailable ARIS, MAQBOOL JAIR MD Unavailable Unavailable ARIS, MAQBOOL JAIR MD Unavailable Unavailable ARIS, MAQBOOL JAIR MD Unavailable Unavailable ARIS, MAQBOOL JAIR MD Unavailable Unavailable ARIS, MAQBOOL JAIR MD Unavailable Unavailable ARIS, MAQBOOL JAIR MD Unavailable Unavailable ARIS, MAQBOOL JAIR MD Unavailable Unavailable ARIS, MAQBOOL JAIR MD Unavailable Unavailable ARIS, MAQBOOL JAIR MD Unavailable Unavailable ARIS, MAQBOOL JAIR MD Unavailable Unavailable ARIS, MAQBOOL JAIR MD Unavailable Unavailable ARIS, MAQBOOL JAIR MD Unavailable Unavailable ARIS, MAQBOOL JAIR MD Unavailable Unavailable ARIS, MAQBOOL JAIR MD Unavailable Unavailable ARIS, MAQBOOL JAIR MD Unavailable Unavailable ARIS, MAQBOOL JAIR MD Unavailable Unavailable ARIS, MAQBOOL JAIR MD Unavailable Unavailable ARIS, MAQBOOL JAIR MD Unavailable Unavailable ARIS, MAQBOOL JAIR MD Unavailable Unavailable ARIS, MAQBOOL JAIR MD Unavailable Unavailable ARIS, MAQBOOL JAIR MD Unavailable Unavailable ARIS, MAQBOOL JAIR MD Unavailable Unavailable ARIS, MAQBOOL JAIR MD Unavailable Unavailable ARIS, MAQBOOL JAIR MD Unavailable Unavailable ARIS, MAQBOOL JAIR MD Unavailable Unavailable ARIS, MAQBOOL JAIR MD Unavailable Unavailable ARIS, MAQBOOL JAIR MD Unavailable Unavailable ARIS, MAQBOOL JAIR MD Unavailable Unavailable ARIS, MAQBOOL JAIR MD Unavailable Unavailable ARIS, MAQBOOL JAIR MD Unavailable Unavailable ARIS, MAQBOOL JAIR MD Unavailable Unavailable ARIS, MAQBOOL JAIR MD Unavailable Unavailable ARIS, MAQBOOL JAIR MD Unavailable Unavailable ARIS, MAQBOOL JAIR MD Unavailable Unavailable ARIS, MAQBOOL JAIR MD Unavailable Unavailable Raul, Sarah Escalante MD Unavailable Unavailable Raul, Sarah Escalante MD Unavailable Unavailable Raul, Sarah Escalante MD Unavailable Unavailable Raul, Sarah Escalante MD Unavailable Unavailable Raul, Sarah Escalante MD Unavailable Unavailable Raul, Sarah Escalante MD Unavailable Unavailable Raul, Sarah Escalante MD Unavailable Unavailable Raul, Sarah Escalante MD Unavailable Unavailable Arul, Sarah Escalante MD Unavailable Unavailable Raul, Sarah Escalante MD Unavailable Unavailable Raul, Sarah Escalante MD Unavailable Unavailable Raul, Sarah Escalante MD Unavailable Unavailable Raul, Sarah Escalante MD Unavailable Unavailable Raul, Sarah Escalante MD Unavailable Unavailable Raul, Sarah Escalante MD Unavailable Unavailable Raul, Sarah Escalante MD Unavailable Unavailable Raul, Sarah Escalante MD Unavailable Unavailable Raul, Sarah Escalante MD Unavailable Unavailable Raul, Sarah Escalante MD Unavailable Unavailable Raul, Sarah Escalante MD Unavailable Unavailable Raul, Sarah Escalante MD Unavailable Unavailable Raul, Sarah Escalante MD Unavailable Unavailable Raul, Sarah Escalante MD Unavailable Unavailable Raul, Sarah Escalante MD Unavailable Unavailable Raul, Sarah Escalante MD Unavailable Unavailable Raul, Sarah Escalante MD Unavailable Unavailable Raul, Sarah Escalante MD Unavailable Unavailable Raul, Sarah Escalante MD Unavailable Unavailable Raul, Sarah Escalante MD Unavailable Unavailable Raul, Sarah Escalante MD Unavailable Unavailable Raul, Sarah Escalante MD Unavailable Unavailable Raul, Sarah Escalante MD Unavailable Unavailable Raul, Sarah Escalante MD Unavailable Unavailable Raul, A Boris HUGHES Unavailable Unavailable Raul, A Boris HUGHES Unavailable Unavailable Raul, Sarah Escalante MD Unavailable Unavailable Raul, Sarah Escalante MD Unavailable Unavailable Raul, Sarah Escalante MD Unavailable Unavailable Raul, A Boris HUGHES Unavailable Unavailable Raul, A Boris HUGHES Unavailable Unavailable Raul, A Boris HUGHES Unavailable Unavailable Raul, A Boris HUGHES Unavailable Unavailable Raul, A Boris HUGHES Unavailable Unavailable Raul, A Boris HUGHES Unavailable Unavailable Raul, Sarah Escalante MD Unavailable Unavailable Raul, Sarah Escalante MD Unavailable Unavailable Raul, A Boris HUGHES Unavailable Unavailable Raul, A Boris HUGHES Unavailable Unavailable Raul, A Boris HUGHES Unavailable Unavailable Raul, A Boris HUGHES Unavailable Unavailable Raul, Sarah Escalante MD Unavailable Unavailable Raul, Sarah Escalante MD Unavailable Unavailable Raul, Sarah Escalante MD Unavailable Unavailable Raul, Sarah Escalante MD Unavailable Unavailable Raul, Sarah Escalante MD Unavailable Unavailable Raul, Sarah Escalante MD Unavailable Unavailable Raul, A Boris HUGHES Unavailable Unavailable Raul, Sarah Escalante MD Unavailable Unavailable Raul, Sarah Escalante MD Unavailable Unavailable Raul, Sarah Escalante MD Unavailable Unavailable Raul, Sarah Esclaante MD Unavailable Unavailable Raul, Sarah Escalante MD Unavailable Unavailable Raul, Sarah Escalante MD Unavailable Unavailable Raul, Sarah Escalante MD Unavailable Unavailable Raul, Sarah Escalante MD Unavailable Unavailable Raul, Sarah Escalante MD Unavailable Unavailable Raul, Sarah Escalante MD Unavailable Unavailable Raul, Sarah Escalante MD Unavailable Unavailable Raul, Sarah Escalante MD Unavailable Unavailable Raul, Sarah Escalante MD Unavailable Unavailable Raul, Sarah Escalante MD Unavailable Unavailable Raul, Sarah Escalante MD Unavailable Unavailable Raul, Sarah Escalante MD Unavailable Unavailable Raul, Sarah Escalante MD Unavailable Unavailable Raul, Sarah Escalante MD Unavailable Unavailable Raul, Sarah Escalante MD Unavailable Unavailable Raul, Sarah Escalante MD Unavailable Unavailable Raul, Sarah Escalante MD Unavailable Unavailable Raul, Sarah Escalante MD Unavailable Unavailable Raul, Sarah Escalante MD Unavailable Unavailable Raul, Sarah Escalante MD Unavailable Unavailable Raul, Sarah Escalante MD Unavailable Unavailable Raul, Sarah Escalante MD Unavailable Unavailable Raul, Sarah Escalante MD Unavailable Unavailable Raul, Sarah Escalante MD Unavailable Unavailable Raul, Sarah Escalante MD Unavailable Unavailable Raul, Sarah Escalante MD Unavailable Unavailable Raul, Sarah Escalante MD Unavailable Unavailable Raul, A Boris HUGHES Unavailable Unavailable Raul, Sarah Escalante MD Unavailable Unavailable Raul, Sarah Escalante MD Unavailable Unavailable Raul, Sarah Escalante MD Unavailable Unavailable Raul, Sarah Escalante MD Unavailable Unavailable Raul, Sarah Escalante MD Unavailable Unavailable Raul, Sarah Escalante MD Unavailable Unavailable Raul, Sarah Escalante MD Unavailable Unavailable Raul, A Boris HUGHES Unavailable Unavailable Raul, Sarah Escalante MD Unavailable Unavailable Raul, Sarah Escalante MD Unavailable Unavailable Raul, Sarah Escalante MD Unavailable Unavailable Raul, Sarah Escalante MD Unavailable Unavailable Raul, A Boris HUGHES Unavailable Unavailable Raul, A Boris HUGHES Unavailable Unavailable Raul, A Boris HUGHES Unavailable Unavailable Raul, Sarah Escalante MD Unavailable Unavailable TONTARSKI, G NARDA PA Unavailable Unavailable TONTARSKI, G NARDA PA Unavailable Unavailable TONTARSKI, G NARDA PA Unavailable Unavailable TONTARSKI, G NARDA PA Unavailable Unavailable TONTARSKI, G NARDA PA Unavailable Unavailable TONTARSKI, G NARDA PA Unavailable Unavailable TONTARSKI, G NARDA PA Unavailable Unavailable TONTARSKI, G NARDA PA Unavailable Unavailable TONTARSKI, G NARDA PA Unavailable Unavailable TONTARSKI, G NARDA PA Unavailable Unavailable TONTARSKI, G NARDA PA Unavailable Unavailable TONTARSKI, G NARDA PA Unavailable Unavailable TONTARSKI, G NARDA PA Unavailable Unavailable TONTARSKI, G NARDA PA Unavailable Unavailable TONTARSKI, G NARDA PA Unavailable Unavailable TONTARSKI, G NARDA PA Unavailable Unavailable TONTARSKI, G NARDA PA Unavailable Unavailable TONTARSKI, G NARDA PA Unavailable Unavailable TONTARSKI, G NARDA PA Unavailable Unavailable TONTARSKI, G NARDA PA Unavailable Unavailable TONTARSKI, G NARDA PA Unavailable Unavailable TONTARSKI, G NARDA PA Unavailable Unavailable TONTARSKI, G NARDA PA Unavailable Unavailable TONTARSKI, G NARDA PA Unavailable Unavailable TONTARSKI, G NARDA PA Unavailable Unavailable TONTARSKI, G NARDA PA Unavailable Unavailable TONTARSKI, G NARDA PA Unavailable Unavailable TONTARSKI, G NARDA PA Unavailable Unavailable TONTARSKI, G NARDA PA Unavailable Unavailable TONTARSKI, G NARDA PA Unavailable Unavailable TONTARSKI, G NARDA PA Unavailable Unavailable TONTARSKI, G NARDA PA Unavailable Unavailable TONTARSKI, G NARDA PA Unavailable Unavailable TONTARSKI, G NARDA PA Unavailable Unavailable TONTARSKI, G NARDA PA Unavailable Unavailable TONTARSKI, G NARDA PA Unavailable Unavailable TONTARSKI, G NARDA PA Unavailable Unavailable TONTARSKI, G NARDA PA Unavailable Unavailable TONTARSKI, G NARDA PA Unavailable Unavailable TONTARSKI, G NARDA PA Unavailable Unavailable TONTARSKI, G NARDA PA Unavailable Unavailable TONTARSKI, G NARDA PA Unavailable Unavailable TONTARSKI, G NARDA PA Unavailable Unavailable TONTARSKI, G NARDA PA Unavailable Unavailable TONTARSKI, G NARDA PA Unavailable Unavailable TONTARSKI, G NARDA PA Unavailable Unavailable TONTARSKI, G NARDA PA Unavailable Unavailable TONTARSKI, G NARDA PA Unavailable Unavailable LOLA RICHARDSON MD Unavailable Unavailable LOLA RICHARDSON MD Unavailable Unavailable LOLA RICHARDSON MD Unavailable Unavailable LOLA RICHARDSON MD Unavailable Unavailable LOLA RICHARDSON MD Unavailable Unavailable LOLA RICHARDSON MD Unavailable Unavailable LOLA RICHARDSON MD Unavailable Unavailable LOLA RICHARDSON MD Unavailable Unavailable LOLA RICHARDSON MD Unavailable Unavailable LOLA RICHARDSON MD Unavailable Unavailable LOLA RICHARDSON MD Unavailable Unavailable LOLA RICHARDSON MD Unavailable Unavailable LOLA RICHARDSON MD Unavailable Unavailable LOLA RICHARDSON MD Unavailable Unavailable LOLA RICHARDSON MD Unavailable Unavailable LOLA RICHARDSON MD Unavailable Unavailable LOLA RICHARDSON MD Unavailable Unavailable LOLA RICHARDSON MD Unavailable Unavailable LOLA RICHARDSON MD Unavailable Unavailable LOLA RICHARDSON MD Unavailable Unavailable LOLA RICHARDSON MD Unavailable Unavailable LOLA RICHARDSON MD Unavailable Unavailable LOLA RICHARDSON MD Unavailable Unavailable LOLA RICHARDSON MD Unavailable Unavailable LOLA RICHARDSON MD Unavailable Unavailable LOLA RICHARDSON MD Unavailable Unavailable LOLA RICHARDSON MD Unavailable Unavailable LOLA RICHARDSON MD Unavailable Unavailable LOLA RICHARDSON MD Unavailable Unavailable LOLA RICHARDSON MD Unavailable Unavailable LOLA RICHARDSON MD Unavailable Unavailable LOLA RICHARDSON MD Unavailable Unavailable LOLA RICHARDSON MD Unavailable Unavailable Brina Torres FEEDER OPERATOR AUTOMATIC FEEDER OPERATOR AUTOMATIC Unavailable Unavailable MARKWITH, LOLA HUGHES Unavailable Unavailable MARKWITH, LOLA HUGHES Unavailable Unavailable MARKWITH, LOLA HUGHES Unavailable Unavailable MARKWITH, LOLA HUGHES Unavailable Unavailable MARKWITH, LOLA HUGHES Unavailable Unavailable MARKWITH, LOLA HUGHES Unavailable Unavailable MARKWITH, LOLA HUGHES Unavailable Unavailable MARKWITH, LOLA HUGHES Unavailable Unavailable MARKWITH, LOLA HUGHES Unavailable Unavailable MARKWITH, LOLA HUGHES Unavailable Unavailable MARKWITH, LOAL HUGHES Unavailable Unavailable MARKWITH, LOLA HUGHES Unavailable Unavailable MARKWITH, LOLA HUGHES Unavailable Unavailable MARKWITH, LOLA HUGHES Unavailable Unavailable MARKWITH, LOLA HUGHES Unavailable Unavailable MARKWITH, LOLA HUGHES Unavailable Unavailable MARKWITH, LOLA HUGHES Unavailable Unavailable MARKWITH, LOLA HUGHES Unavailable Unavailable MARKWITH, LOLA HUGHES Unavailable Unavailable MARKWITH, LOLA HUGHES Unavailable Unavailable MARKWITH, LOLA HUGHES Unavailable Unavailable MARKWITH, LOLA HUGHES Unavailable Unavailable MARKWITH, LOLA HUGHES Unavailable Unavailable MARKWITH, LOLA HUGHES Unavailable Unavailable MARKWITH, LOLA HUGHES Unavailable Unavailable MARKWITH, LOLA HUGHES Unavailable Unavailable MARKWITH, LOLA HUGHES Unavailable Unavailable MARKWITH, LOLA HUGHES Unavailable Unavailable MARKWITH, LOLA HUGHES Unavailable Unavailable MARKWITH, LOLA HGUHES Unavailable Unavailable MARKWITH, LOLA HUGHES Unavailable Unavailable MARKWITH, LOLA HUGHES Unavailable Unavailable MARKWITH, LOLA HUGHES Unavailable Unavailable Re-disclosure Warning The records that you are about to access may contain information from federally-assisted alcohol or drug abuse programs. If such information is present, then the following federally mandated warning applies: This information has been disclosed to you from records protected by federal confidentiality rules (42 CFR part 2). The federal rules prohibit you from making any further disclosure of this information unless further disclosure is expressly permitted by the written consent of the person to whom it pertains or as otherwise permitted by 42 CFR part 2. A general authorization for the release of medical or other information is NOT sufficient for this purpose. The Federal rules restrict any use of the information to criminally investigate or prosecute any alcohol or drug abuse patient.The records that you are about to access may contain highly sensitive health information, the redisclosure of which is protected by Article 27-F of the [facility] Public Health law. If you continue you may have access to information: Regarding HIV / AIDS; Provided by facilities licensed or operated by the [facility] Office of Mental Health; or Provided by the [facility] Office for People With Developmental Disabilities. If such information is present, then the following [facility] mandated warning applies: This information has been disclosed to you from confidential records which are protected by state law. State law prohibits you from making any further disclosure of this information without the specific written consent of the person to whom it pertains, or as otherwise permitted by law. Any unauthorized further disclosure in violation of state law may result in a fine or detention sentence or both. A general authorization for the release of medical or other information is NOT sufficient authorization for further disc losure. Family History Family Member Name Family Member Gender Family Member Status Date o f Status Description Data Source(s) Unknown Male Problem [facility] ([facility]) Encounters Encounter Providers Location Date Indications Data Source(s ) Office Visit Attender: NARDA CINSEROS [facility] 07/13/2020 10:00:00 AM EST [facility] (Jair Francois MD) Office Visit Attender: NARDA CISNER[facility] 07/02/2020 11:30:00 AM EST [facility] (Jair Francois MD) Office Visit Attender: NARDA [facility] 06/23/2020 07:30:00 AM EST [facility] (Jair Francois MD) Outpatient Attender: LOLA RICHARDSON MD Physical Therapy 12:00:00 PM EST [facility] ([facility]) Office Visit Attender: JAIR FRANCOIS MD [facility] 04/30 02:00:00 PM EST [facility] (Jair Francois MD) Office Visit Attender: Alice CISNEROS [facility] 04/30/2020 10:30:00 AM EST [facility] ([facility]) Office Visit Attender: JAIR FRANCOIS MD [facility] 04/15 01:45:00 PM EDT [facility] (Jair Francois MD) Outpatient Attender: LOLA VILLATORO [facility] 03/19 09:15:00 AM EDT [facility] ([facility] Outpatient Attender: Alice CISNEROS [facility] 01/29/2020 02:00:00 PM EDT [facility] ([facility]) Outpatient Attender: YARA KURTZ 11/26/2019 07:54:55 P M EDT [facility] Outpatient Referrer: LOLA RICHARDSON MD 11/18/2019 09:41:0 0 AM EDT [facility] Outpatient Referrer: LOLA RICHARDSON MD 11/18/2019 09:38:0 0 AM EDT [facility] Outpatient Referrer: LOLA RICHARDSON MD 11/18/2019 09:38:0 0 AM EDT [facility] Outpatient Referrer: LOLA RICHARDSON MD 11/12/2019 11:34:0 0 AM EDT [facility] Outpatient Attender: Alice CISNEROS [facility] 10/23/2019 08:45:00 AM EDT [facility] ([facility]) Outpatient Attender: Boris Carter MDAdmitter: Boris jesus MD [email or web address] 09/13/2019 04:12:36 PM EDT - 09/16/2019 11:50:00 AM EDT [facility] Patient discharged. Outpatient Referrer: LOLA RICHARDSON MD 08/20/2019 09:47:0 0 AM EST [facility] Outpatient Referrer: LLOA RICHARDSON MD 08/19/2019 09:53:0 0 AM EST [facility] Outpatient Attender: Alice CISNEROS [facility] n 07/19/2019 11:15:00 AM EST [facility] ([facility]) Outpatient Referrer: LOLA RICHARDSON MD 07/09/2019 07:32:0 0 PM EST [facility] Medications Medication Brand Name Start Date Product Form Dose Route Admi nistrative Instructions Pharmacy Instructions Status Indications Reaction Description Data Source(s) atorvastatin 40 MG Oral Tablet ATORVASTATIN CALCIUM 07/25/2020 1 2:00:00 AM EST tablet 30 TAKE ONE TABLET BY MOUTH AT BEDT ION TAKE ONE TABLET BY MOUTH AT BEDTIME SOLD: 07/29/2020 [facility] 875-125 mg 07/13/2020 12:00:00 AM EST tablet 20 TAKE ONE TABLET BY MOUTH TWICE A DAY FOR 10 DAYS TAKE ONE TABLET BY MOUTH TWICE A DAY FOR 10 DAYS SOLD: 07/13/2020 [facility] 750 mg 07/07/2020 12:00:00 AM EST tablet 90 TAKE 1 TABLET BY MOUTH THREE TIMES A DAY MAXIMUM DAILY DOSE = 3 TAKE 1 TABLET BY MOUTH THREE TIMES A DAY MAXIMUM DAILY DOSE = 3 SOLD: 07/09/2020 [facility] 40 mg 06/24/2020 12:00:00 AM EST capsule,delayed release (DR/EC) 90 TAKE ONE CAPSULE BY MOUTH EVERY DAY TAKE ONE CAPSULE BY MOUTH EVERY DAY SOLD: 06/30/2020 [facility] 40 mg 06/24/2020 12:00:00 AM EST tablet 90 TAKE ONE TABLET BY MOUTH EVERY DAY TAKE ONE TABLET BY MOUTH EVERY DAY SOLD: 06/30/2020 [facility] Trazodone Hydrochloride 100 MG Oral Tablet TRAZODONE HCL 06/24/2020 12:00:00 AM EST tablet 30 TAKE ONE TABLET BY MOUTH AT BEDTIME TAKE ONE TABLET BY MOUTH AT BEDTIME SOLD: 07/29/2020 [facility] Trazodone Hydrochloride 100 MG Oral Tablet TRAZODONE HCL 06/24/2020 12:00:00 AM EST tablet 30 TAKE ONE TABLET BY MOUTH AT BEDTIME TAKE ONE TABLET BY MOUTH AT BEDTIME SOLD: 06/30/2020 [facility] 25 mcg 05/19/2020 12:00:00 AM EST tablet 90 TAKE ONE TABLET BY MOUTH EVERY DAY TAKE ONE TABLET BY MOUTH EVERY DAY SOLD: 05/19/2020 [facility] 100 mg 05/13/2020 12:00:00 AM EST tablet 9 TAKE 1TAB.BY MOUTH TWICE A DAY NEEDED FOR HEADACHES MAX=2TABS/DAY TAKE 1TAB.BY MOUTH TWICE A DAY NEEDED FOR HEADACHES MAX=2TABS/DAY SOLD: 06/18/2020 [facility] 100 mg 05/13/2020 12:00:00 AM EST tablet 9 TAKE 1TAB.BY MOUTH TWICE A DAY NEEDED FOR HEADACHES MAX=2TABS/DAY TAKE 1TAB.BY MOUTH TWICE A DAY NEEDED FOR HEADACHES MAX=2TABS/DAY SOLD: 05/19/2020 [facility] 100 mg 05/13/2020 12:00:00 AM EST tablet 9 TAKE 1TAB.BY MOUTH TWICE A DAY NEEDED FOR HEADACHES MAX=2TABS/DAY TAKE 1TAB.BY MOUTH TWICE A DAY NEEDED FOR HEADACHES MAX=2TABS/DAY SOLD: 07/16/2020 [facility] 300 mg 05/04/2020 12:00:00 AM EST capsule 20 TAKE 1 CAPSULE BY MOUTH TWO TIMES A DAY TAKE 1 CAPSULE BY MOUTH TWO TIMES A DAY SOLD: 05/04/2020 [facility] 25 mg 05/01/2020 12:00:00 AM EST tablet extended release 24 hr 30 TAKE ONE TABLET BY MOUTH EVERY EVENING AT BEDTIME TAKE ONE TABLET BY MOUTH EVERY EVENING AT BEDTIME SOLD: 07/29/2020 [facility] 25 mg 05/01/2020 12:00:00 AM EST tablet extended release 24 hr 90 TAKE ONE TABLET BY MOUTH EVERY EVENING AT BEDTIME TAKE ONE TABLET BY MOUTH EVERY EVENING AT BEDTIME SOLD: 05/01/2020 [facility] 24 HR metoprolol succinate 25 MG Extended Release Oral Tablet Metoprolol Succinate ER 04/30/2020 12:00:00 AM EST ORAL active [facility] (Jair Francois MD) atorvastatin 40 MG Oral Tablet ATORVASTATIN CALCIUM 04/30/2020 1 2:00:00 AM EST tablet 90 TAKE ONE TABLET BY MOUTH AT BEDT ION TAKE ONE TABLET BY MOUTH AT BEDTIME SOLD: 04/30/2020 [facility] Coccyx Cushion 04/30/2020 12:00:00 AM EST act bert [facility] ([facility]) 750 mg 04/27/2020 12:00:00 AM EST tablet 90 TAKE ONE TABLET BY MOUTH THREE TIMES A DAY MAXIMUM DAILY DOSE = 3 TAKE ONE TABLET BY MOUTH THREE TIMES A D AY MAXIMUM DAILY DOSE = 3 SOLD: 04/29/2020 [facility] 750 mg 04/27/2020 12:00:00 AM EST tablet 90 TAKE ONE TABLET BY MOUTH THREE TIMES A DAY MAXIMUM DAILY DOSE = 3 TAKE ONE TABLET BY MOUTH THREE TIMES A D AY MAXIMUM DAILY DOSE = 3 SOLD: 06/10/2020 [facility] Trazodone Hydrochloride 100 MG Oral Tablet TRAZODONE HCL 03/21/2020 12:00:00 AM EDT tablet 30 TAKE ONE TABLET BY MOUTH BESS LY AT BEDTIME TAKE ONE TABLET BY MOUTH DAILY AT BEDTIME SOLD: 06/10/2020 [facility] Trazodone Hydrochloride 100 MG Oral Tablet TRAZODONE HCL 03/21/2020 12:00:00 AM EDT tablet 30 TAKE ONE TABLET BY MOUTH BESS LY AT BEDTIME TAKE ONE TABLET BY MOUTH DAILY AT BEDTIME SOLD: 03/27/2020 [facility] Trazodone Hydrochloride 100 MG Oral Tablet TRAZODONE HCL 03/21/2020 12:00:00 AM EDT tablet 30 TAKE ONE TABLET BY MOUTH BESS LY AT BEDTIME TAKE ONE TABLET BY MOUTH DAILY AT BEDTIME SOLD: 04/29/2020 [facility] 300 mg 03/20/2020 12:00:00 AM EDT capsule 20 TAKE ONE CAPSULE BY MOUTH TWICE A DAY TAKE ONE CAPSULE BY MOUTH TWICE A DAY SOLD: 03/20/2020 [facility] 40 mg 03/16/2020 12:00:00 AM EDT tablet 60 TAKE 1 TABLET BY MOUTH TWICE DAILY TAKE 1 TABLET BY MOUTH TWICE DAILY SOLD: 04/17/2020 [facility] 40 mg 03/16/2020 12:00:00 AM EDT tablet 60 TAKE 1 TABLET BY MOUTH TWICE DAILY TAKE 1 TABLET BY MOUTH TWICE DAILY SOLD: 03/20/2020 [facility] Famotidine 40 MG Oral Tablet FAMOTIDINE 03/16/2020 12:00:00 AM EDT tab let 60 TAKE 1 TABLET BY MOUTH TWICE DAILY TAKE 1 TABLET BY MOUTH TWICE DAILY SOLD: 05/19/2020 [facility] INHALER, ASSIST DEVICES 03/13/2020 12:00:00 AM EDT spacer 1 TO BE USED WITH HER INHALERS TO BE USED WITH HER INHALERS SOLD: 03/15/2020 [facility] 200 mg 02/17/2020 12:00:00 AM EDT capsule 60 TAKE ONE CAPSULE BY MOUTH TWICE A DAY MAXIMUM DAILY DOSE = 2 CAPSULES TAKE ONE CAPSULE BY MOUTH TWICE A DAY MAXIMUM DAILY DOSE = 2 CAPSULES SOLD: 05/19/2020 [facility] 200 mg 02/17/2020 12:00:00 AM EDT capsule 60 TAKE ONE CAPSULE BY MOUTH TWICE A DAY MAXIMUM DAILY DOSE = 2 CAPSULES TAKE ONE CAPSULE BY MOUTH TWICE A DAY MAXIMUM DAILY DOSE = 2 CAPSULES SOLD: 07/21/2020 [facility] 200 mg 02/17/2020 12:00:00 AM EDT capsule 60 TAKE ONE CAPSULE BY MOUTH TWICE A DAY MAXIMUM DAILY DOSE = 2 CAPSULES TAKE ONE CAPSULE BY MOUTH TWICE A DAY MAXIMUM DAILY DOSE = 2 CAPSULES SOLD: 06/18/2020 [facility] 200 mg 02/17/2020 12:00:00 AM EDT capsule 60 TAKE ONE CAPSULE BY MOUTH TWICE A DAY MAXIMUM DAILY DOSE = 2 CAPSULES TAKE ONE CAPSULE BY MOUTH TWICE A DAY MAXIMUM DAILY DOSE = 2 CAPSULES SOLD: 04/17/2020 [facility] 200 mg 02/17/2020 12:00:00 AM EDT capsule 60 TAKE ONE CAPSULE BY MOUTH TWICE A DAY MAXIMUM DAILY DOSE = 2 CAPSULES TAKE ONE CAPSULE BY MOUTH TWICE A DAY MAXIMUM DAILY DOSE = 2 CAPSULES SOLD: 02/29/2020 [facility] 25 mcg 02/11/2020 12:00:00 AM EDT tablet 90 TAKE ONE TABLET BY MOUTH EVERY DAY TAKE ONE TABLET BY MOUTH EVERY DAY SOLD: 02/11/2020 [facility] 40 mg 02/07/2020 12:00:00 AM EDT tablet 90 TAKE 1 TABLET BY MOUTH ONCE A DAY TAKE 1 TABLET BY MOUTH ONCE A DAY SOLD: 02/11/2020 [facility] 750 mg 01/20/2020 12:00:00 AM EDT tablet 90 TAKE ONE TABLET BY MOUTH THREE TIMES A DAY NEEDED MAXIMUM DAILY DOSE = 3 TAKE ONE TABLET BY MOUTH THREE TIMES A DAY NEEDED MAXIMUM DAILY DOSE = 3 SOLD: 01/24/2020 [facility] 750 mg 01/20/2020 12:00:00 AM EDT tablet 90 TAKE ONE TABLET BY MOUTH THREE TIMES A DAY NEEDED MAXIMUM DAILY DOSE = 3 TAKE ONE TABLET BY MOUTH THREE TIMES A DAY NEEDED MAXIMUM DAILY DOSE = 3 SOLD: 03/30/2020 [facility] 750 mg 01/20/2020 12:00:00 AM EDT tablet 90 TAKE ONE TABLET BY MOUTH THREE TIMES A DAY NEEDED MAXIMUM DAILY DOSE = 3 TAKE ONE TABLET BY MOUTH THREE TIMES A DAY NEEDED MAXIMUM DAILY DOSE = 3 SOLD: 02/29/2020 [facility] 40 mg 01/18/2020 12:00:00 AM EDT tablet 90 TAKE ONE TABLET BY MOUTH AT BEDTIME TAKE ONE TABLET BY MOUTH AT BEDTIME SOLD: 01/24/2020 [facility] 40 mg 01/09/2020 12:00:00 AM EDT capsule,delayed release (DR/EC) 90 TAKE 1 CAPSULE [40MG] BY MOUTH DAILY 30 MINUTES BEFORE MORNING MEAL TAKE 1 CAPSULE [40MG] BY MOUTH DAILY 30 MINUTES BEFORE MORNING MEAL SOLD: 04/05/2020 [facility] 40 mg 01/09/2020 12:00:00 AM EDT capsule,delayed release (DR/EC) 90 TAKE 1 CAPSULE [40MG] BY MOUTH DAILY 30 MINUTES BEFORE MORNING MEAL TAKE 1 CAPSULE [40MG] BY MOUTH DAILY 30 MINUTES BEFORE MORNING MEAL SOLD: 01/09/2020 [facility] Trazodone Hydrochloride 100 MG Oral Tablet TRAZODONE HCL 12/12/2019 12:00:00 AM EDT tablet 30 TAKE ONE TABLET BY MOUTH BESS LY AT BEDTIME NEEDED TAKE ONE TABLET BY MOUTH DAILY AT BEDTIME NEEDED SOLD: 02/29/2020 [facility] Trazodone Hydrochloride 100 MG Oral Tablet TRAZODONE HCL 12/12/2019 12:00:00 AM EDT tablet 30 TAKE ONE TABLET BY MOUTH BESS LY AT BEDTIME NEEDED TAKE ONE TABLET BY MOUTH DAILY AT BEDTIME NEEDED SOLD: 12/23/2019 [facility] Trazodone Hydrochloride 100 MG Oral Tablet TRAZODONE HCL 12/12/2019 12:00:00 AM EDT tablet 30 TAKE ONE TABLET BY MOUTH BESS LY AT BEDTIME NEEDED TAKE ONE TABLET BY MOUTH DAILY AT BEDTIME NEEDED SOLD: 01/24/2020 [facility] 25 mcg 2019 12:00:00 AM EDT tablet 90 TAKE ONE TABLET BY MOUTH EVERY DAY TAKE ONE TABLET BY MOUTH EVERY DAY SOLD: 2019 [facility] 40 mg 11/12/2019 12:00:00 AM EDT tablet 90 TAKE 1 TABLET BY MOUTH ONCE A DAY TAKE 1 TABLET BY MOUTH ONCE A DAY SOLD: 11/15/2019 [facility] Methocarbamol 750 MG Oral Tablet Methocarbamol 10/23/2019 12:00:00 AM EDT active [facility] ([facility]) 750 mg 10/23/2019 12:00:00 AM EDT tablet 90 TAKE ONE TABLET BY MOUTH THREE TIMES A DAY NEEDED MAXIMUM DAILY DOSE = 3 TABLETS TAKE ONE TABLET BY MOUTH THREE TIMES A DAY NEEDED MAXIMUM DAILY DOSE = 3 TABLETS SOLD: 12/23/2019 [facility] 750 mg 10/23/2019 12:00:00 AM EDT tablet 90 TAKE ONE TABLET BY MOUTH THREE TIMES A DAY NEEDED MAXIMUM DAILY DOSE = 3 TABLETS TAKE ONE TABLET BY MOUTH THREE TIMES A DAY NEEDED MAXIMUM DAILY DOSE = 3 TABLETS SOLD: 2019 [facility] 750 mg 10/23/2019 12:00:00 AM EDT tablet 90 TAKE ONE TABLET BY MOUTH THREE TIMES A DAY NEEDED MAXIMUM DAILY DOSE = 3 TABLETS TAKE ONE TABLET BY MOUTH THREE TIMES A DAY NEEDED MAXIMUM DAILY DOSE = 3 TABLETS SOLD: 10/27/2019 [facility] 40 mg 10/22/2019 12:00:00 AM EDT tablet 90 TAKE ONE TABLET BY MOUTH DAILY AT BEDTIME TAKE ONE TABLET BY MOUTH DAILY AT BEDTIME SOLD: 10/27/2019 [facility] 40 mg 10/14/2019 12:00:00 AM EDT capsule,delayed release (DR/EC) 90 TAKE 1 CAPSULE BY MOUTH ONCE A DAY TAKE 1 CAPSULE BY MOUTH ONCE A DAY SOLD: 10/17/2019 [facility] Trazodone Hydrochloride 100 MG Oral Tablet TRAZODONE HCL 09/18/2019 12:00:00 AM EDT tablet 30 TAKE ONE TABLET BY MOUTH BESS LY AT BEDTIME NEEDED TAKE ONE TABLET BY MOUTH DAILY AT BEDTIME NEEDED SOLD: 10/17/2019 [facility] 875-125 mg 09/18/2019 12:00:00 AM EDT tablet 20 TAKE 1 TABLET BY MOUTH TWO TIMES A DAY TAKE 1 TABLET BY MOUTH TWO TIMES A DAY SOLD: 09/18/2019 [facility] 150 mg 09/18/2019 12:00:00 AM EDT tablet 2 TAKE 1 TABLET BY MOUTH ONCE A WEEK TAKE 1 TABLET BY MOUTH ONCE A WEEK SOLD: 09/18/2019 [facility] Trazodone Hydrochloride 100 MG Oral Tablet TRAZODONE HCL 09/18/2019 12:00:00 AM EDT tablet 30 TAKE ONE TABLET BY MOUTH BESS LY AT BEDTIME NEEDED TAKE ONE TABLET BY MOUTH DAILY AT BEDTIME NEEDED SOLD: 11/15/2019 [facility] Trazodone Hydrochloride 100 MG Oral Tablet TRAZODONE HCL 09/18/2019 12:00:00 AM EDT tablet 30 TAKE ONE TABLET BY MOUTH BESS LY AT BEDTIME NEEDED TAKE ONE TABLET BY MOUTH DAILY AT BEDTIME NEEDED SOLD: 09/19/2019 [facility] 10-325 mg 09/17/2019 12:00:00 AM EDT tablet 90 TAKE ONE TABLET BY MOUTH THREE TIMES A DAY NEEDED FOR PAIN. MAXIMUM DAILY DOSE = 3 TABLETS TAKE ONE TABLET BY MOUTH THREE TIMES A DAY NEEDED FOR PAIN. MAXIMUM DAILY DOSE = 3 TABLETS SOLD: 09/18/2019 [facility] Magnesium Chloride 0.70179 MEQ/ML / Pota ssium Chloride 0.0497 MEQ/ML / Sodium Acetate 0.0163 MEQ/ML / Sodium Chloride 0.0899 MEQ/ML / Sodium gluconate 5.02 MG/ML Injectable Solution [Normosol-R] electrolyte-R (NORMOSOL-R/PLASMALYTE-R) solution electrolyte-R (NORMOSOL-R/PLASMALYTE-R) solution 09/15 09:00:00 AM EDT Intravenous active at 1 00 mL/hr, Intravenous, Continuous, Starting 09/16/19 at 0900, Pre-op [facility] Medication administered onsite Sumatriptan 100 MG Oral Tablet Sumatriptan Succinate 09/11/2019 12:00:00 AM EDT active [facility] ( [facility] 100 mg 09/11/2019 12:00:00 AM EDT tablet 9 TAKE 1 TABLET BY MOUTH TWO TIMES A DAY NEEDED FOR HEADACHES MAX DAILY DOSE = 2 TABLETS TAKE 1 TABLET BY MOUTH TWO TIMES A DAY NEEDED FOR HEADACHES MAX DAILY DOSE = 2 TABLETS SOLD: 09/18/2019 [facility] 100 mg 09/11/2019 12:00:00 AM EDT capsule 30 TAKE 1 CAPSULE BY MOUTH EVERY EVENING AT BEDTIME MAXIMUM DAILY DOSE = 1 TAKE 1 CAPSULE BY MOUTH EVERY EVENING AT BEDTIME MAXIMUM DAILY DOSE = 1 SOLD: 09/18/2019 [facility] 100 mg 09/11/2019 12:00:00 AM EDT capsule 30 TAKE 1 CAPSULE BY MOUTH EVERY EVENING AT BEDTIME MAXIMUM DAILY DOSE = 1 TAKE 1 CAPSULE BY MOUTH EVERY EVENING AT BEDTIME MAXIMUM DAILY DOSE = 1 SOLD: 11/15/2019 [facility] 100 mg 09/11/2019 12:00:00 AM EDT tablet 9 TAKE 1 TABLET BY MOUTH TWO TIMES A DAY NEEDED FOR HEADACHES MAX DAILY DOSE = 2 TABLETS TAKE 1 TABLET BY MOUTH TWO TIMES A DAY NEEDED FOR HEADACHES MAX DAILY DOSE = 2 TABLETS SOLD: 02/15/2020 [facility] 100 mg 09/11/2019 12:00:00 AM EDT tablet 9 TAKE 1 TABLET BY MOUTH TWO TIMES A DAY NEEDED FOR HEADACHES MAX DAILY DOSE = 2 TABLETS TAKE 1 TABLET BY MOUTH TWO TIMES A DAY NEEDED FOR HEADACHES MAX DAILY DOSE = 2 TABLETS SOLD: 03/15/2020 [facility] 100 mg 09/11/2019 12:00:00 AM EDT tablet 9 TAKE 1 TABLET BY MOUTH TWO TIMES A DAY NEEDED FOR HEADACHES MAX DAILY DOSE = 2 TABLETS TAKE 1 TABLET BY MOUTH TWO TIMES A DAY NEEDED FOR HEADACHES MAX DAILY DOSE = 2 TABLETS SOLD: 12/12/2019 [facility] 100 mg 09/11/2019 12:00:00 AM EDT tablet 9 TAKE 1 TABLET BY MOUTH TWO TIMES A DAY NEEDED FOR HEADACHES MAX DAILY DOSE = 2 TABLETS TAKE 1 TABLET BY MOUTH TWO TIMES A DAY NEEDED FOR HEADACHES MAX DAILY DOSE = 2 TABLETS SOLD: 04/17/2020 [facility] 100 mg 09/11/2019 12:00:00 AM EDT tablet 9 TAKE 1 TABLET BY MOUTH TWO TIMES A DAY NEEDED FOR HEADACHES MAX DAILY DOSE = 2 TABLETS TAKE 1 TABLET BY MOUTH TWO TIMES A DAY NEEDED FOR HEADACHES MAX DAILY DOSE = 2 TABLETS SOLD: 11/09/2019 [facility] 100 mg 09/11/2019 12:00:00 AM EDT tablet 9 TAKE 1 TABLET BY MOUTH TWO TIMES A DAY NEEDED FOR HEADACHES MAX DAILY DOSE = 2 TABLETS TAKE 1 TABLET BY MOUTH TWO TIMES A DAY NEEDED FOR HEADACHES MAX DAILY DOSE = 2 TABLETS SOLD: 10/10/2019 [facility] 100 mg 09/11/2019 12:00:00 AM EDT tablet 9 TAKE 1 TABLET BY MOUTH TWO TIMES A DAY NEEDED FOR HEADACHES MAX DAILY DOSE = 2 TABLETS TAKE 1 TABLET BY MOUTH TWO TIMES A DAY NEEDED FOR HEADACHES MAX DAILY DOSE = 2 TABLETS SOLD: 01/18/2020 [facility] 100 mg 09/11/2019 12:00:00 AM EDT capsule 30 TAKE 1 CAPSULE BY MOUTH EVERY EVENING AT BEDTIME MAXIMUM DAILY DOSE = 1 TAKE 1 CAPSULE BY MOUTH EVERY EVENING AT BEDTIME MAXIMUM DAILY DOSE = 1 SOLD: 10/17/2019 [facility] 100 mg 09/11/2019 12:00:00 AM EDT capsule 30 TAKE 1 CAPSULE BY MOUTH EVERY EVENING AT BEDTIME MAXIMUM DAILY DOSE = 1 TAKE 1 CAPSULE BY MOUTH EVERY EVENING AT BEDTIME MAXIMUM DAILY DOSE = 1 SOLD: 12/12/2019 [facility] 40 mg 09/10/2019 12:00:00 AM EDT tablet 60 TAKE 1 TABLET BY MOUTH TWICE DAILY TAKE 1 TABLET BY MOUTH TWICE DAILY SOLD: 02/15/2020 [facility] 40 mg 09/10/2019 12:00:00 AM EDT tablet 60 TAKE 1 TABLET BY MOUTH TWICE DAILY TAKE 1 TABLET BY MOUTH TWICE DAILY SOLD: 10/09/2019 [facility] 40 mg 09/10/2019 12:00:00 AM EDT tablet 60 TAKE 1 TABLET BY MOUTH TWICE DAILY TAKE 1 TABLET BY MOUTH TWICE DAILY SOLD: 01/18/2020 [facility] 40 mg 09/10/2019 12:00:00 AM EDT tablet 60 TAKE 1 TABLET BY MOUTH TWICE DAILY TAKE 1 TABLET BY MOUTH TWICE DAILY SOLD: 12/12/2019 [facility] 40 mg 09/10/2019 12:00:00 AM EDT tablet 60 TAKE 1 TABLET BY MOUTH TWICE DAILY TAKE 1 TABLET BY MOUTH TWICE DAILY SOLD: 09/11/2019 [facility] 40 mg 09/10/2019 12:00:00 AM EDT tablet 60 TAKE 1 TABLET BY MOUTH TWICE DAILY TAKE 1 TABLET BY MOUTH TWICE DAILY SOLD: 11/09/2019 [facility] 40 mg 08/23/2019 12:00:00 AM EST tablet 90 TAKE 1 TABLET BY MOUTH ONCE A DAY TAKE 1 TABLET BY MOUTH ONCE A DAY SOLD: 08/27/2019 [facility] 90 mcg/actuation 08/22/2019 12:00:00 AM EST HFA aerosol inha ler 18 INHALE 2 PUFFS BY MOUTH EVERY 4 HOURS NEEDED FOR SHORTNESS OF BREATH INHALE 2 PUFFS BY MOUTH EVERY 4 HOURS NEEDED FOR SHORTNESS OF BREATH SOLD: 09/30/2019 [facility] 90 mcg/actuation 08/22/2019 12:00:00 AM EST HFA aerosol inha ler 18 INHALE 2 PUFFS BY MOUTH EVERY 4 HOURS NEEDED FOR SHORTNESS OF BREATH INHALE 2 PUFFS BY MOUTH EVERY 4 HOURS NEEDED FOR SHORTNESS OF BREATH SOLD: 08/27/2019 [facility] 90 mcg/actuation 08/22/2019 12:00:00 AM EST HFA aerosol inha ler 18 INHALE 2 PUFFS BY MOUTH EVERY 4 HOURS NEEDED FOR SHORTNESS OF BREATH INHALE 2 PUFFS BY MOUTH EVERY 4 HOURS NEEDED FOR SHORTNESS OF BREATH SOLD: 10/17/2019 [facility] 90 mcg/actuation 08/22/2019 12:00:00 AM EST HFA aerosol inha ler 18 INHALE 2 PUFFS BY MOUTH EVERY 4 HOURS NEEDED FOR SHORTNESS OF BREATH INHALE 2 PUFFS BY MOUTH EVERY 4 HOURS NEEDED FOR SHORTNESS OF BREATH SOLD: 09/11/2019 [facility] 10-325 mg 08/20/2019 12:00:00 AM EST tablet 90 TAKE 1 TABLET BY MOUTH THREE TIMES A DAY NEEDED FOR PAIN MAXIMUM DAILY DOSE = 3 TABLETS TAKE 1 TABLET BY MOUTH THREE TIMES A DAY NEEDED FOR PAIN MAXIMUM DAILY DOSE = 3 TABLETS SOLD: 08/20/2019 [facility] 200 mg 08/19/2019 12:00:00 AM EST capsule 60 TAKE ONE CAPSULE BY MOUTH TWICE A DAY MAX= 2CAPS/DAY TAKE ONE CAPSULE BY MOUTH TWICE A DAY MAX= 2CAPS/DAY S OLD: 11/15/2019 [facility] 200 mg 08/19/2019 12:00:00 AM EST capsule 60 TAKE ONE CAPSULE BY MOUTH TWICE A DAY MAX= 2CAPS/DAY TAKE ONE CAPSULE BY MOUTH TWICE A DAY MAX= 2CAPS/DAY S OLD: 12/16/2019 [facility] 200 mg 08/19/2019 12:00:00 AM EST capsule 60 TAKE ONE CAPSULE BY MOUTH TWICE A DAY MAX= 2CAPS/DAY TAKE ONE CAPSULE BY MOUTH TWICE A DAY MAX= 2CAPS/DAY S OLD: 10/17/2019 [facility] 200 mg 08/19/2019 12:00:00 AM EST capsule 60 TAKE ONE CAPSULE BY MOUTH TWICE A DAY MAX= 2CAPS/DAY TAKE ONE CAPSULE BY MOUTH TWICE A DAY MAX= 2CAPS/DAY S OLD: 08/20/2019 [facility] 200 mg 08/19/2019 12:00:00 AM EST capsule 60 TAKE ONE CAPSULE BY MOUTH TWICE A DAY MAX= 2CAPS/DAY TAKE ONE CAPSULE BY MOUTH TWICE A DAY MAX= 2CAPS/DAY S OLD: 01/19/2020 [facility] 200 mg 08/19/2019 12:00:00 AM EST capsule 60 TAKE ONE CAPSULE BY MOUTH TWICE A DAY MAX= 2CAPS/DAY TAKE ONE CAPSULE BY MOUTH TWICE A DAY MAX= 2CAPS/DAY S OLD: 09/18/2019 [facility] 200 mcg 08/17/2019 12:00:00 AM EST tablet 120 TAKE ONE TABLET BY MOUTH FOUR TIMES A DAY AT MEALS AND AT BEDTIME TAKE ONE TABLET BY MOUTH FOUR TIMES A DA Y AT MEALS AND AT BEDTIME SOLD: 08/27/2019 [facility] 200 mcg 08/17/2019 12:00:00 AM EST tablet 120 TAKE ONE TABLET BY MOUTH FOUR TIMES A DAY AT MEALS AND AT BEDTIME TAKE ONE TABLET BY MOUTH FOUR TIMES A DA Y AT MEALS AND AT BEDTIME SOLD: 2019 [facility] 200 mcg 08/17/2019 12:00:00 AM EST tablet 120 TAKE ONE TABLET BY MOUTH FOUR TIMES A DAY AT MEALS AND AT BEDTIME TAKE ONE TABLET BY MOUTH FOUR TIMES A DA Y AT MEALS AND AT BEDTIME SOLD: 09/30/2019 [facility] 1 gram 08/17/2019 12:00:00 AM EST tablet 120 TAKE 1 TAB.BY MOUTH 4X/DAY AT MEALS AND BEDTIME-MAY DISSOLVE IN 15 ML OF WATER TAKE 1 TAB.BY MOUTH 4X/DAY AT MEALS AND BEDTIME-MAY DISSOLVE IN 15 ML OF WATER SOLD: 08/17/2019 [facility] 200 mcg 08/17/2019 12:00:00 AM EST tablet 120 TAKE ONE TABLET BY MOUTH FOUR TIMES A DAY AT MEALS AND AT BEDTIME TAKE ONE TABLET BY MOUTH FOUR TIMES A DA Y AT MEALS AND AT BEDTIME SOLD: 10/27/2019 [facility] 1 gram 08/17/2019 12:00:00 AM EST tablet 120 TAKE 1 TAB.BY MOUTH 4X/DAY AT MEALS AND BEDTIME-MAY DISSOLVE IN 15 ML OF WATER TAKE 1 TAB.BY MOUTH 4X/DAY AT MEALS AND BEDTIME-MAY DISSOLVE IN 15 ML OF WATER SOLD: 09/18/2019 [facility] 25 mcg 08/10/2019 12:00:00 AM EST tablet 90 TAKE 1 TABLET BY MOUTH ONCE A DAY TAKE 1 TABLET BY MOUTH ONCE A DAY SOLD: 08/14/2019 [facility] 40 mg 07/28/2019 12:00:00 AM EST tablet 90 TAKE ONE TABLET BY MOUTH AT BEDTIME TAKE ONE TABLET BY MOUTH AT BEDTIME SOLD: 07/28/2019 [facility] 10-325 mg 07/21/2019 12:00:00 AM EST tablet 90 TAKE ONE TABLET BY MOUTH THREE TIMES A DAY NEEDED FOR PAIN MAXIMUM DAILY DOSE = 3 TAKE ONE TABLET BY MOUTH THREE TIMES A DAY NEEDED FOR PAIN MAXIMUM DAILY DOSE = 3 SOLD: 07/22/2019 [facility] 200 mg 07/18/2019 12:00:00 AM EST capsule 60 TAKE 1 CAPSULE BY MOUTH TWICE A DAY MAXIMUM DAILY DOSE = 2 CAPSULES TAKE 1 CAPSULE BY MOUTH TWICE A DAY MAXI MUM DAILY DOSE = 2 CAPSULES SOLD: 07/18/2019 [facility] pregabalin 200 MG Oral Capsule Pregabalin 07/18/2019 12:00:00 AM EST active [facility] ([facility]) 40 mg 07/01/2019 12:00:00 AM EST tablet 22 TAKE ONE-HALF TABLET BY MOUTH EVERY OTHER DAY TAKE ONE-HALF TABLET BY MOUTH EVERY OTHER DAY SOLD: 10/17/19 20 [facility] 40 mg 07/01/2019 12:00:00 AM EST tablet 22 TAKE ONE-HALF TABLET BY MOUTH EVERY OTHER DAY TAKE ONE-HALF TABLET BY MOUTH EVERY OTHER DAY SOLD: 07/01/19 20 [facility] 10-325 mg 06/21/2019 12:00:00 AM EST tablet 90 TAKE ONE TABLET BY MOUTH THREE TIMES A DAY NEEDED FOR PAIN MAXIMUM DAILY DOSE = THREE TABLETS TAKE ONE TABLET BY MOUTH THREE TIMES A DAY NEEDED FOR PAIN MAXIMUM DAILY DOSE = THREE TABLETS SOLD: 06/22/2019 [facility] 7.5-325 mg 06/18/2019 12:00:00 AM EST tablet 90 TAKE ONE TABLET BY MOUTH THREE TIMES A DAY NEEDED MAXIMUM DAILY DOSE = 3 TABLETS TAKE ONE TABLET BY MOUTH THREE TIMES A DAY NEEDED MAXIMUM DAILY DOSE = 3 TABLETS SOLD: 06/18/2019 [facility] 875-125 mg 06/14/2019 12:00:00 AM EST tablet 28 TAKE ONE TABLET BY MOUTH TWICE A DAY TAKE ONE TABLET BY MOUTH TWICE A DAY SOLD: 06/14/2019 [facility] 875-125 mg 06/14/2019 12:00:00 AM EST tablet 28 TAKE ONE TABLET BY MOUTH TWICE A DAY TAKE ONE TABLET BY MOUTH TWICE A DAY SOLD: 06/27/2019 [facility] 4 mg 06/03/2019 12:00:00 AM EST tablet 90 TAKE ONE TABLET BY MOUTH THREE TIMES A DAY MAXIMUM DAILY DOSE = 3 TAKE ONE TABLET BY MOUTH THREE TIMES A D AY MAXIMUM DAILY DOSE = 3 SOLD: 07/15/2019 [facility] 4 mg 06/03/2019 12:00:00 AM EST tablet 90 TAKE ONE TABLET BY MOUTH THREE TIMES A DAY MAXIMUM DAILY DOSE = 3 TAKE ONE TABLET BY MOUTH THREE TIMES A D AY MAXIMUM DAILY DOSE = 3 SOLD: 08/14/2019 [facility] 4 mg 06/03/2019 12:00:00 AM EST tablet 90 TAKE ONE TABLET BY MOUTH THREE TIMES A DAY MAXIMUM DAILY DOSE = 3 TAKE ONE TABLET BY MOUTH THREE TIMES A D AY MAXIMUM DAILY DOSE = 3 SOLD: 10/09/2019 [facility] 4 mg 06/03/2019 12:00:00 AM EST tablet 90 TAKE ONE TABLET BY MOUTH THREE TIMES A DAY MAXIMUM DAILY DOSE = 3 TAKE ONE TABLET BY MOUTH THREE TIMES A D AY MAXIMUM DAILY DOSE = 3 SOLD: 06/09/2019 [facility] 90 mcg/actuation 06/03/2019 12:00:00 AM EST HFA aerosol inha ler 18 INHALE TWO PUFFS BY MOUTH EVERY 4 HOURS NEEDED FOR SHORTNESS OF BREATH INHALE TWO PUFFS BY MOUTH EVERY 4 HOURS NEEDED FOR SHORTNESS OF BREATH SOLD: 07/15/2019 [facility] 90 mcg/actuation 06/03/2019 12:00:00 AM EST HFA aerosol inha ler 18 INHALE TWO PUFFS BY MOUTH EVERY 4 HOURS NEEDED FOR SHORTNESS OF BREATH INHALE TWO PUFFS BY MOUTH EVERY 4 HOURS NEEDED FOR SHORTNESS OF BREATH SOLD: 07/30/2019 [facility] 90 mcg/actuation 06/03/2019 12:00:00 AM EST HFA aerosol inha ler 18 INHALE TWO PUFFS BY MOUTH EVERY 4 HOURS NEEDED FOR SHORTNESS OF BREATH INHALE TWO PUFFS BY MOUTH EVERY 4 HOURS NEEDED FOR SHORTNESS OF BREATH SOLD: 06/09/2019 [facility] 4 mg 06/03/2019 12:00:00 AM EST tablet 90 TAKE ONE TABLET BY MOUTH THREE TIMES A DAY MAXIMUM DAILY DOSE = 3 TAKE ONE TABLET BY MOUTH THREE TIMES A D AY MAXIMUM DAILY DOSE = 3 SOLD: 09/11/2019 [facility] 90 mcg/actuation 06/03/2019 12:00:00 AM EST HFA aerosol inha ler 18 INHALE TWO PUFFS BY MOUTH EVERY 4 HOURS NEEDED FOR SHORTNESS OF BREATH INHALE TWO PUFFS BY MOUTH EVERY 4 HOURS NEEDED FOR SHORTNESS OF BREATH SOLD: 06/22/2019 [facility] 1 % 05/31/2019 12:00:00 AM EST gel 100 APPLY TO AFFECTED AREA(S) 1 GRAM THREE TIMES A DAY DIRECTED APPLY TO AFFECTED AREA(S) 1 GRAM THREE T IMES A DAY DIRECTED SOLD: 07/01/2019 [facility] Docusate Sodium 100 MG Oral Capsule DOCUSATE SODIUM 03/29/2019 1 2:00:00 AM EDT capsule 30 TAKE ONE CAPSULE BY MOUTH EVERY EVENING AT BEDTIME TAKE ONE CAPSULE BY MOUTH EVERY EVENING AT BEDTIME SOLD: 07/18/2019 [facility] 100 mg 03/29/2019 12:00:00 AM EDT capsule 30 TAKE ONE CAPSULE BY MOUTH EVERY EVENING AT BEDTIME TAKE ONE CAPSULE BY MOUTH EVERY EVENING AT BEDTIME GENE [facility] 100 mg 03/29/2019 12:00:00 AM EDT capsule 30 TAKE ONE CAPSULE BY MOUTH EVERY EVENING AT BEDTIME TAKE ONE CAPSULE BY MOUTH EVERY EVENING AT BEDTIME GENE [facility] 40 mg 02/16/2019 12:00:00 AM EDT capsule,delayed release (DR/EC) 90 TAKE 1 CAPSULE BY MOUTH 30 MINUTES BEFORE MORNING MEAL TAKE 1 CAPSULE BY MOUTH 30 MINUTES BEFORE MORNING MEAL SOLD: 07/30/2019 [facility] 200 mg 01/19/2019 12:00:00 AM EDT capsule 60 TAKE ONE CAPSULE BY MOUTH TWICE A DAY MAXIMUM DAILY DOSE = 2 CAPSULES TAKE ONE CAPSULE BY MOUTH TWICE A DAY MAXIMUM DAILY DOSE = 2 CAPSULES SOLD: 06/17/2019 [facility] 100 mg 01/02/2019 12:00:00 AM EDT tablet 9 1 TABLET BY MOUTH 2 TIMES A DAY NEEDED HEADACHES MAX DAILY DOSE=2 1 TABLET BY MOUTH 2 TIMES A DAY NEEDE D HEADACHES MAX DAILY DOSE=2 SOLD: 08/14/2019 [facility] 100 mg 01/02/2019 12:00:00 AM EDT tablet 9 1 TABLET BY MOUTH 2 TIMES A DAY NEEDED HEADACHES MAX DAILY DOSE=2 1 TABLET BY MOUTH 2 TIMES A DAY NEEDE D HEADACHES MAX DAILY DOSE=2 SOLD: 06/09/2019 [facility] 100 mg 01/02/2019 12:00:00 AM EDT tablet 9 1 TABLET BY MOUTH 2 TIMES A DAY NEEDED HEADACHES MAX DAILY DOSE=2 1 TABLET BY MOUTH 2 TIMES A DAY NEEDE D HEADACHES MAX DAILY DOSE=2 SOLD: 07/15/2019 [facility] Multiple Vitamins-Minerals (MULTIVITAMIN WITH MINERALS ) tablet Multi- Vitamin/Minerals Po Tabs 08/29/2018 12:00:00 AM EDT 2 {tbl} Oral active Take 2 tablets by mouth daily [facility] Simethicone 80 MG Chewable Tablet simethicone (MYLICON ) 80 MG chewable tablet simethicone (MYLICON) 80 MG chewable tablet 08/29/2018 12:00:00 AM EDT 80 mg Oral aborted Chew 1 tablet (80 mg total) every 6 (six) hours as needed for flatulence [facility] Vitamin B 12 0.5 MG Oral Tablet cyanocob alamin ([facility] VITAMIN B-12) 500 MCG tablet cyanocobalamin ([facility] VITAMIN B-12) 500 MCG tablet 08/29/2018 12:0 0:00 AM EDT 500 ug Oral active Take 1 tablet (500 mcg t otal) by mouth daily [facility] varenicline 1 MG Oral Tablet varenicline (CHANTIX) 1 M G tablet varenicline (CHANTIX) 1 MG tablet 1 mg Oral aborted Take 1 mg by mouth 2 (two) times a day [facility] Insurance Providers Payer name Policy type / Coverage type Policy ID Covered constitution party ID Covered constitution party's relationship to dumas Policy [place] Plan Information ON LICENSE OF [facility] COMMUNITY [facility] [id number] SP [id number] ON LICENSE OF [facility]UNITY [facility] [id number] SP [id number] [facility]) O [id number] S [id number] Managed Care - [facility] Community Plan P [id number] S [id number] Medicaid S [id number] S [id number] [facility] MEDICAID [id number] [facility] MEDICAID [id number] Miranda [id number] ON LICENSE OF [facility] AMERICHOICE XIX -HMO [id number] 18 [id number] [facility]-Medicaid [id number] Medicaid Medigap Part B [id number] Self [id number] Community Plan [facility] Commercial [id number] Self [id number] [facility] Commercial [id number] Self [id number] [facility] Community Plan Commercial [id number] Self [id number] ANSI-Medicaid [id number] ANSI-Medicaid [id number] Medicaid Medigap Part B [id number] Self [id number] [facility] Community [facility] Commercial [id number] Self [id number] Managed Care - Community Plan [facility] P [id number] S [id number] [facility] MEDICAID PI PI [facility] [id number] Self [id number] [facility] [id number] Self [id number] Medicaid Medigap Part B [id number] Self [id number] ANSI-Medicaid [id number] ANSI-Medicaid [id number] [facility] [id number] Miranda [id number] [facility] [id number] Miranda [id number] Managed Care - [facility] P [id number] S [id number] Medicaid Medigap Part B [id number] Self [id number] ANSI-Medicaid [id number] Medicaid Medigap Part B [id number] Self [id number] [facility] [id number] S [id number] [facility] Health Maintenance Organization (HMO) [id number] Self [id number] [facility] MEDICAID [id number] S [id number] Managed Care - [facility] P [id number] S [id number] [facility] MEDICAID [id number] S [id number] [facility] MEDICAID [id number] S [id number] [facility] MEDICAID [id number] S [id number] [facility] MEDICAID [id number] S [id number] MEDICAID [id number] S [id number] [facility] PL [id number] S [id number] Medicaid Medigap Part B [id number] Self [id number] [facility] Comm Plan Medicaid F [id number] SELF [id number] Medicaid Medigap Part B [id number] Self [id number] Medicaid Medigap Part B [id number] Self [id number] Medicaid Medigap Part B [id number] Self [id number] Medicaid Medigap Part B [id number] Self [id number] [facility] [id number] S [id number] [facility] Comm Plan Medicaid F [id number] SELF [id number] Medicaid Medigap Part B [id number] Self [id number] [facility] COMMUNITY PLAN MCDHMO [id number] SP [id number] Medicaid Medigap Part B [id number] Self [id number] [facility]) O [id number] S [id number] Community Plan - [facility] Commercial [id number] Self [id number] [facility] Reji/MCR Health Maintenance Organization (HMO) [id number] Self [id number] Community Plan - [facility] Commercial Self MEDICAID [id number] SP [id number] [employer] WC [id number] S [id number] [facility] Comm Plan Medicaid F [id number] SELF [id number] MEDICAID -O/P [id number] MEDICAID-O/P [id number] O UNAVAILABLE S UNAVAILABLE [facility] COMM PLAN [id number] 18 [id number] [employer] P [id number] S [id number] O BLUE [id number] SP [id number] [employer] P UNAVAILABLE S UNAV AILABLE Problems, Conditions, and Diagnoses Code Display Name Description Problem Type Effective Dates Data Source(s) 58313183 Plantar fascial fibromatosis Plantar fascial fibromato sis Problem 04/14/2020 12:00:00 AM EDT [facility] ([facility] R10.13 Epigastric pain Epigastric pain Diagnosis 09/16/2019 08:2 4:00 AM EDT [facility] Surgeries/Procedures Procedure Description Date Indications Data Source(s) XTRNL ECG < 48 HR RECORD SCAN STOR W/PHY R&I 0 12:00:00 AM EDT [facility] (Jair Francois MD) CV STRS TST XERS&/OR RX CONT ECG PHYS SI&R 04/15/2020 12:00:00 AM EDT [facility] (Jair Francois MD) ECHO TTHRC R-T 2D W/WOM-MODE COMPL SPEC&COLR DOP 04/15 12:00:00 AM EDT [facility] (Jair Francois MD) Strapping Foot Or Ankle 03/31/2020 12:00:00 AM EDT [facility] ([facility] Strapping Foot Or Ankle 03/31/2020 12:00:00 AM EDT [facility] ([facility] RADEX FOOT COMPLETE MINIMUM 3 VIEWS 03/31/2020 12:00:0 0 AM EDT [facility] ([facility] RADEX FOOT COMPLETE MINIMUM 3 VIEWS 03/31/2020 12:00:0 0 AM EDT [facility] ([facility] ECG ROUTINE ECG W/LEAST 12 LDS W/I&R 03/20/2020 12:00: 00 AM EDT [facility] (Jair Francois MD) Results ID Date Data Source [id number] 07/29/2020 12:00:00 PM [facility] Name Value Range Interpretation Code Description Data Jody rce(s) Supporting Document(s) SARS coronavirus 2 RNA Not Detected [facility] This lab was ordered by [facility] and reported by [facility]. ID Date Data Source [id number] 07/17/2020 12:00:00 AM EST [facility] Lola Richardson MD Patient Name: ETIENNE SEE571 [facility] Date of : 1975 201 Date of Exam: 07/17/2020Gabriel CELIA [id number]#: Fax: [phone] EXAM: ARTHROCENTESIS OF LARGE JOINT W/O USRIGHT KNEE INJECTION:The procedure was performed by PJ Jarrett under the generalsupervision of Dr. Watts.The benefits and risks including, but not limited to pain, inf ection,bleeding, and anaphylaxis were explained to the patient and informedconsent was obtained.The right tibiofemoral joint space was localized using fluoroscopicguidance. The skin was prepped and draped in a sterile fashion. 1%Lidocaine was used as a local anesthetic. Using fluoroscopic guidance, a#22 gauge needle was inserted and advanced into the joint. 0.5 cc ofOmnipaque 300 was injected to verify placement. 6 cc of a solutioncontaining 5 cc of 1% Lidocaine and 1 cc of Kenalog 40 mg was injected intothe joint space. The needle was then removed.The patient tolerated the procedure well and there were no immediatecomplications.Fluoroscopy time was 3 seconds at 3 pulses/second. This is equal to 1second of continuous fluoroscopy time which is a 75% reduction inradiation.RAO Gould/Denis moreno for referring ALICE SEE to our office. Electronically Signed - DAMIAN WATTS MD 07/20/20 9:35 Name Value Range Interpretation Code Description Data Jody rce(s) Supporting Document(s) ID Date Data Source [id number] 07/17/2020 12:00:00 AM EST [facility] Lola Richardson MD Patient Name: RICH [id number] [facility] Date of : 1975 Date [facility]: [facility] [id number] fax: [phone] EXAM: ARTHROCENTESIS OF LARGE JOINT W/O USRIGHT KNEE INJECTION:The procedure was performed by Everton Sanon [facility] under the generalsupervision of Dr. Watts.The benefits and risks including, but not limited to pain, inf ection,bleeding, and anaphylaxis were explained to the patient and informedconsent was obtained.The right tibiofemoral joint space was localized using fluoroscopicguidance. The skin was prepped and draped in a sterile fashion. 1%Lidocaine was used as a local anesthetic. Using fluoroscopic guidance, a#22 gauge needle was inserted and advanced into the joint. 0.5 cc ofOmnipaque 300 was injected to verify placement. 6 cc of a solutioncontaining 5 cc of 1% Lidocaine and 1 cc of Kenalog 40 mg was injected intothe joint space. The needle was then removed.The patient tolerated the procedure well and there were no immediatecomplications.Fluoroscopy time was 3 seconds at 3 pulses/second. This is equal to 1second of continuous fluoroscopy time which is a 75% reduction inradiation.RAO Gould/Denis moreno for referring ALICE SEE to our office. Electronically Signed - DAMIAN WATTS MD 07/20/20 9:35 Name Value Range Interpretation Code Description Data Jody rce(s) Supporting Document(s) ID Date Data Source [id number] 07/13/2020 12:00:00 AM EST [facility] Name Value Range Interpretation Code Description Data Jody rce(s) Supporting Document(s) SARS-CoV2 Rapid Antigen Negative [facility] This lab was ordered by [facility] and reported by Jair Francois MD. ID Date Data Source [id number] 05/04/2020 09:00:00 AM EST [facility] Name Value Range Interpretation Code Description Data Jody rce(s) Supporting Document(s) SARS-CoV-2 (COVID-19) [facility] This lab was ordered by [facility] and reported by [facility]. ID Date Data Source [id number] 02/20/2020 12:00:00 AM EDT [facility] Lola Richardson MD Patient Name: ETIENNE SEE571 [facility] Date of : 1975 Date of Exam: 02/20/2020[place]es[place]EL[place] george [id number]#: Fax: [phone] EXAM: ARTHROCENTESIS OF LARGE JOINT W/O USCLINICAL INFORMATION: Unilateral primary osteoarthritis.The procedure was performed by PJ Jarrett under the generalsupervision of Dr. Curtis.The benefits and risks inc luding but not limited pain, infection, bleeding,and anaphylaxis were explained to the patient and informed consent wasobtained.The tibial femoral joint space was localized using fluoroscopic guidance.The skin was prepped and draped in the sterile fashion. 1% Lidocaine wasused as a local anesthetic. Using fluoroscopic guidance a #22-gauge needlewas inserted and advanced into the joint. 1 cc of Omnipaque 300 wasinjected to verify placement. 6 cc of a solution containing 5 cc of 1%Lidocaine and 1 cc of Kenalog 40 mg was injected. The needle was thenremoved.The patient tolerated the procedure well and there were no immediatecomplications.Fluoroscopy time was 16 seconds at 3 pulses/second. This is equal to 4seconds of continuous fluoroscopy time which is a 75% in reduction inradiation.MAMI Pham/slmThank josh for referring ALICE SEE to our office. Electronically Signed - MARCELLA CURTIS MD 02/21/20 16:53 Name Value Range Interpretation Code Description Data Jody rce(s) Supporting Document(s) ID Date Data Source [id number] 02/20/2020 12:00:00 AM EDT [facility] Lola Richardson MD Patient Name: RICH SEEA1571 [facility] Date of : 1975 Date of Exam: [facility]/2020[facility] [id number]#: Fax: [phone] EXAM: ARTHROCENTESIS OF LARGE JOINT W/O USCLINICAL INFORMATION: Unilateral primary osteoarthritis.The procedure was performed by PJ Jarrett under the generalsupervision of Dr. Curtis.The benefits and risks inc luding but not limited pain, infection, bleeding,and anaphylaxis were explained to the patient and informed consent wasobtained.The tibial femoral joint space was localized using fluoroscopic guidance.The skin was prepped and draped in the sterile fashion. 1% Lidocaine wasused as a local anesthetic. Using fluoroscopic guidance a #22-gauge needlewas inserted and advanced into the joint. 1 cc of Omnipaque 300 wasinjected to verify placement. 6 cc of a solution containing 5 cc of 1%Lidocaine and 1 cc of Kenalog 40 mg was injected. The needle was thenremoved.The patient tolerated the procedure well and there were no immediatecomplications.Fluoroscopy time was 16 seconds at 3 pulses/second. This is equal to 4seconds of continuous fluoroscopy time which is a 75% in reduction inradiation.MAMI Pham/Isamar you for referring ALICE SEE to our office. Electronically Signed - MARCELLA CURTIS MD 02/21/20 16:53 Name Value Range Interpretation Code Description Data Jody rce(s) Supporting Document(s) ID Date Data Source [id number] 11/18/2019 12:00:00 AM EDT [facility] Lola Richardson MD Patient Name: RICH SEEA1571 [facility] Date of : 1975 [facility] Date of Exam: 11/18/2019[place], [place] [id number]#: Fax: [phone] EXAM: ARTHROCENTESIS OF LARGE JOINT W/O USCLINICAL INFORMATION: Unilateral primary osteoarthritis of the rightknee.The procedure was performed by Renetta Leonardo [facility], under the directsupervision of Dr. Hill.The benefits and risks including but not limited to pain, infection,bleeding and anaphylaxis were explained to the patient as well as thepotential therapeutic benefits of the procedure and the possibility of anunsuccessful procedure, and an informed consent was obtained. Directlyprior to the start of the procedure, a formal time-out was completed.The right femorotibial joint space was localized using fluoroscopicguidance. The skin was prepped and draped in a sterile fashion.Approximately 3 cc of 1% Lidocaine 10 mg/ml was used as a local anesthetic. Using fluoroscopic guidance, a #22 gauge spinal needle was inserted andadvanced into the right femorotibial joint space. Approximately 1 cc ofOmnipaque 300 mg/ml was injected to verify placement. A 6 cc solutioncontaining 5 cc of 1% Lidocaine 10 mg/ml and 1 cc of Kenalog 40 mg/ml wasinjected into the joint space. The needle was then removed.The patient tolerated the procedure well and there were no immediatecomplications.Fluoroscopic images are performed with last image hold technology. Theseimages require no additional radiation to acquire.Fluoroscopy time was 13 seconds at 3 pulses/second. This is equal to 3.25seconds continuous fluoroscopy time which is a 75% reduction in radiation.Dictated by Renetta Leonardo, PJ, with Dr. Hill.HIREN Roldan/Denis moreno for referring ALICE SEE to our office. Electronically Signed - JOHN HILL DO 11/18/19 12:13 Name Value Range Interpretation Code Description Data Jody rce(s) Supporting Document(s) ID Date Data Source [id number] 11/18/2019 12:00:00 AM EDT [facility] Lola Richardson MD Patient Name: RICH SEEA1571 [facility] Date of : 1975 [address] Date of Exam: 11/18/2019CELIA Rios [id number]#: Fax: [phone] EXAM: ARTHROCENTESIS OF LARGE JOINT W/O USCLINICAL INFORMATION: Unilateral primary osteoarthritis of the rightknee.The procedure was performed by PJ Ardon, under the directsupervision of Dr. Hill.The benefits and risks including but not limited to pain, infection,bleeding and anaphylaxis were explained to the patient as well as thepotential therapeutic benefits of the procedure and the possibility of anunsuccessful procedure, and an informed consent was obtained. Directlyprior to the start of the procedure, a formal time-out was completed.The right femorotibial joint space was localized using fluoroscopicguidance. The skin was prepped and draped in a sterile fashion.Approximately 3 cc of 1% Lidocaine 10 mg/ml was used as a local anesthetic. Using fluoroscopic guidance, a #22 gauge spinal needle was inserted andadvanced into the right femorotibial joint space. Approximately 1 cc ofOmnipaque 300 mg/ml was injected to verify placement. A 6 cc solutioncontaining 5 cc of 1% Lidocaine 10 mg/ml and 1 cc of Kenalog 40 mg/ml wasinjected into the joint space. The needle was then removed.The patient tolerated the procedure well and there were no immediatecomplications.Fluoroscopic images are performed with last image hold technology. Theseimages require no additional radiation to acquire.Fluoroscopy time was 13 seconds at 3 pulses/second. This is equal to 3.25seconds continuous fluoroscopy time which is a 75% reduction in radiation.Dictated by PJ Ardon, with Dr. Hill.HIREN Roldan/Denis you for referring ALICE SEE to our office. Electronically Signed - JOHN HILL DO 11/18/19 12:13 Name Value Range Interpretation Code Description Data Jody rce(s) Supporting Document(s) ID Date Data Source [id number] 09/16/2019 11:12:44 AM EDT [facility]FORMATIONPatient [facility] Name Date of Age Gend*PT [id number] Alice See 1975 43 years F OPPT Location Admission Date/Time Visit ID Attending ProviderEndo Jeannette 09/16/19 0824 --- Boris Carter MD ([id number]) EPI ID [facility] Admitting Provider [id number] Boris Carter MD([id number])Endoscopic Gastrojejunoscopy Procedure NotePatient: Alice SeeMRN: [id number] Date: 09/16/2019Surgeon(s):DIA Care-operative Diagnosis:Abdominal pain, epigastric [R10.13]Post-Op Diagnosis Codes: * Abdominal pain, epigastric [R10.13] * History of Susana-en-Y gastric bypass [Z98.84] * History of morbid obesity [Z87.898]Procedure: 1) EsophagogastrojejunoscopyAnesthesia/Sedation: Monitored Anesthesia Care (MAC) (see anesthesia report).Findings: expected anaotmy after RNY, no ulcer, no stenosisSpecimens:* No specimens in log *Estimated Blood Loss: noneComplications: None; patient tolerated the procedure well.Disposition: Stable to recovery room.Indications for Procedure/Consent: This is a 43 years female 12 months statuspost a gastric bypass. Wt 280 pounds, she lost 100 pounds She presented withvague epigastric pain and a feeling of fullness. An upper endoscopy wasindicated to assess the cause of the patient's symptoms. After obtaininghistory and performing the physical examination, the procedure, indications,potential complications, including but not limited to bleeding, perforation,infection, adverse medication reaction, and alternatives were explained to thepatient. Patient appeared to understand the benefits and risks of thisprocedure. Informed consent was obtained from the patient after providingopportunity for questions.Procedure Details:The gastroscope was inserted into the mouth and advanced under directvisualization to afferent and efferent limb. A careful inspection was made asthe gastroscope was withdrawn, findings and interventions are described above.After completion of the examination, the patient was transferred to the recoveryroom.Implants: NoneImpression:-Normal upper endoscopy, with no endoscopic evidence of neoplasia or mucosalabnormality., -expected anatomy after RNY.Recommendations:-Continue acid suppression.-Follow up with me in a monthSignature: NILA Caate: September 16, 2019Time: 11:03 AMCC: Boris Carter [facility]: JAIR FRANCOIS MD Name Value Range Interpretation Code Description Data Jody rce(s) Supporting Document(s) ID Date Data Source [id number] 08/20/2019 12:00:00 AM EST [facility] Lola Richardson MD Patient Name: RICH SEEA1571 [facility] Date of : 1975 Date of Exam: 08/20/2019CELIA Rios [id number]#: Fax: [phone] EXAM: ARTHROCENTESIS OF LARGE JOINT W/O USRIGHT KNEE INJECTION:The procedure was performed by JP Jarrett under the directsupervision of Dr. Curtis.The benefits and risks including, but not limited to pain, inf ection,bleeding, and anaphylaxis were explained to the patient and informedconsent was obtained.The right patellofemoral joint space was localized using fluoroscopicguidance. The skin was prepped and draped in a sterile fashion. 1%Lidocaine was used as a local anesthetic. Using fluoroscopic guidance, a#22 gauge needle was inserted and advanced into the joint. 0.5 cc ofOmnipaque 300 was injected to verify placement. 6 cc of a solutioncontaining 5 cc of 1% Lidocaine and 1 cc of Kenalog 40 mg was injected intothe joint space. The needle was then removed.The patient tolerated the procedure well and there were no immediatecomplications.Fluoroscopy time was 1 second at 3 pulses/second. This is equal to 0.25seconds continuous fluoroscopy time which is a 75% reduction in radiation.MAMI Pham/Denis you for referring ALICE SEE to our office. Electronically Signed - MARCELLA CURTIS MD 08/21/19 10:59 Name Value Range Interpretation Code Description Data Jody rce(s) Supporting Document(s) ID Date Data Source [id number] 08/20/2019 12:00:00 AM [facility] Lola Richardson MD Patient Name: RICH [id number] [facility] Date of : 1975 Date of Exam: 08/20/2019CELIA Rios [id number]#: Fax: [phone] EXAM: ARTHROCENTESIS OF LARGE JOINT W/O USRIGHT KNEE INJECTION:The procedure was performed by PJ Jarrett under the directsupervision of Dr. Curtis.The benefits and risks including, but not limited to pain, inf ection,bleeding, and anaphylaxis were explained to the patient and informedconsent was obtained.The right patellofemoral joint space was localized using fluoroscopicguidance. The skin was prepped and draped in a sterile fashion. 1%Lidocaine was used as a local anesthetic. Using fluoroscopic guidance, a#22 gauge needle was inserted and advanced into the joint. 0.5 cc ofOmnipaque 300 was injected to verify placement. 6 cc of a solutioncontaining 5 cc of 1% Lidocaine and 1 cc of Kenalog 40 mg was injected intothe joint space. The needle was then removed.The patient tolerated the procedure well and there were no immediatecomplications.Fluoroscopy time was 1 second at 3 pulses/second. This is equal to 0.25seconds continuous fluoroscopy time which is a 75% reduction in radiation.MAMI Pham/Denis you for referring ALICE SEE to our office. Electronically Signed - MARCELLA CURTIS MD 08/21/19 10:59 Name Value Range Interpretation Code Description Data Jody rce(s) Supporting Document(s) Procedure Social History Code Duration Value Status Description Data Source(s ) Alcohol intake 09/16/2019 12:00:00 AM EDT No completed [facility] Cigarette pack-years 09/16/2019 12:00:00 AM EDT UNK completed [facility] Cigarettes smoked current (pack per day) - Reported 09/16/19 20 12:00:00 AM EDT UNK completed [facility] Smoking 09/16/2019 12:00:00 AM EDT Current every day smoker co mpleted Current every day smoker [facility] Vital Signs ID Date Data Source UNK Name Value Range Interpretation Code Description Data Source(s) Body surface area Derived from formula 1.83 m2 1.83 m2 [facility] ([facility]) Body weight 79.834 kg 79.834 kg [facility] ([facility]) [place] body weight 115 [lb_av] 115 [lb_av] [facility] ([facility]) Body mass index (BMI) [Ratio] 31.2 kg/m2 31.2 k g/m2 [facility] ([facility]) Body weight 176.00 [lb_av] 176.00 [lb_av] [facility] ([facility]) Body height 63 [in_i] 63 [in_i] [facility] ([facility]) 5'3" Diastolic blood pressure 70 mm[Hg] 70 mm[Hg] [facility]) Systolic blood pressure 130 mm[Hg] 130 mm[Hg] M [facility] ([facility]) Oxygen saturation in Arterial blood by Pulse oximetry 97 % 97 % [facility] (Jair Francois MD) Heart rate 77 /min 77 /min [facility] (Jair Francois MD) Diastolic blood pressure 83 mm[Hg] 83 mm[Hg] [facility] (Jair Francois MD) Systolic blood pressure 138 mm[Hg] 138 mm[Hg] M EDENT (Jair Francois MD) Body temperature 97.1 [degF] 97.1 [degF] [facility] (Jair Francois MD) Body mass index (BMI) [Ratio] 30.3 kg/m2 30.3 k g/m2 [facility] (Jair Francois MD) Body weight 171.00 [lb_av] 171.00 [lb_av] MEDEN T (Jair Francois MD) Body height 63 [in_i] 63 [in_i] [facility] (Jair Francois MD) 5'3" Body weight 170.00 [lb_av] 170.00 [lb_av] MEDEN T ([facility], ) stated Body mass index (BMI) [Ratio] 31.0 kg/m2 31.0 k g/m2 [facility] ([facility] Heart rate 82 /min 82 /min [facility] ([facility] Diastolic blood pressure 83 mm[Hg] 83 mm[Hg] [facility] ([facility] Systolic blood pressure 107 mm[Hg] 107 mm[Hg] EDENT ([facility] Body weight 175.00 [lb_av] 175.00 [lb_av] MEDEN T ([facility] Body height 63 [in_i] 63 [in_i] [facility] ([facility] 5'3" [place] body weight 115 [lb_av] 115 [lb_av] MEDEN T ([facility], ) Body mass index (BMI) [Ratio] 31.2 kg/m2 31.2 k g/m2 [facility] ([facility], ) Body weight 176.00 [lb_av] 176.00 [lb_av] MEDEN T ([facility], ) Body height 63 [in_i] 63 [in_i] MED[facility] ([facility], ) 5'3" Oxygen saturation in Arterial blood by Pulse oximetry 99 % 99 % [facility] Body temperature 36.[address] [facility] Heart rate 79 /min 79 /min [facility] Diastolic blood pressure 88 mm[Hg] 88 mm[Hg] [facility] Systolic blood pressure 136 mm[Hg] 136 mm[Hg] [facility] Respiratory rate 16 /min 16 /min [facility] Body mass index (BMI) [Ratio] 31.71 kg/m2 31.71 kg/m2 [facility] Body weight 81.194 kg 81.194 kg [facility] Body height 160 cm 160 cm [facility] Body weight 186.00 [lb_av] 186.00 [lb_av] MEDEN T ([facility], ) Respiratory rate 16 /min 16 /min MED[facility] ( [facility], ) Heart rate 68 /min 68 /min [facility] ([facility], ) Diastolic blood pressure 70 mm[Hg] 70 mm[Hg] [facility] ([facility], ) Systolic blood pressure 100 mm[Hg] 100 mm[Hg] M EDENT ([facility], ) Patient Treatment Plan of Care Planned Activity Planned Date Details Description Data Source (s) Simethicone 80 MG Chewable Tablet 08/29/2018 12:00:00 AM EDT [facility] Multiple Vitamins-Minerals (MULTIVITAMIN WITH MINERALS ) tablet 08/29/2018 12:00:00 AM EDT [facility] Vitamin B 12 0.5 MG Oral Tablet 08/29/2018 12:00:00 AM EDT [facility] varenicline 1 MG Oral Tablet [facility]
[2020-08-03] MEDS ORDERED: LIDOCAINE 2% 100MG/5ML SDV (FOR ANES.) As Ordered ONE (07:16)
[2020-08-03] MEDS ORDERED: propofoL 200 MG/20 ML VIAL As Ordered ONE (07:16)
[2020-08-03] MEDS ORDERED: ONDANSETRON 4MG/2ML VIAL As Ordered ONE (07:16)
[2020-08-03] MEDS ORDERED: fentaNYL 100 MCG/2 ML INJECTION (J3010) As Ordered ONE (07:17)
[2020-08-03] MEDS ORDERED: MIDAZOLAM INJ 2MG/2ML VIAL (J2250 PER 1MG) As Ordered ONE ×2 (07:17→07:35)
[2020-08-03] MEDS ORDERED: CHLOROPROCAINE PRES. FREE 2% 20ML VIAL As Ordered ONE (07:33)
[2020-08-03] MEDS ORDERED: KETOROLAC 60MG 2ML VIAL As Ordered ONE (08:09)
[2020-08-03] MEDS ORDERED: ePHEDrine SULFATE 25 MG/5 ML(5MG/ML) SYRINGE As Ordered ONE (08:28)
--- NOTE | 2020-08-03 08:41 | RO ---
OPERATIVE NOTE DATE OF OPERATION: 08/03/2020 PREOPERATIVE DIAGNOSIS: Pilonidal cyst. POSTOPERATIVE DIAGNOSIS: Pilonidal cyst. PROCEDURE: Pilonidal cystectomy. SURGEON: Tesfaye Dumont DO. EMERGENCY MAN: None. ANESTHESIA: Spinal with sedation. ESTIMATED BLOOD LOSS: 2 mL. COMPLICATIONS: None. INDICATIONS FOR PROCEDURE: The patient is a 44-year-old female who presents with a pilonidal cyst. Recommendation is to proceed with bilateral cystectomy. Risks and benefits of the procedure not limited to, but including bleeding, infection, damage to surrounding structures, and need for further surgery were discussed in detail with the patient. Informed consent was obtained and procedure was planned. DESCRIPTION OF PROCEDURE: The patient was brought back to operating room 6. After sufficient sedation, the presacral area was sterilely prepped and draped with Betadine. Next, a time-out was done confirming proper patient and proper procedure. Following that since I could not palpate the cyst itself, I grabbed a flexible probe and was able to feel it through the sinus tract and determine the trajectory of the cyst. Once that was completed, I made an elliptical incision using a 15-blade scalpel. The incision was then carried down through the subcutaneous tissue using electrocautery circumferentially all around the sinus tract in the cyst until the presacral fascia was reached. Once this was completed, the specimen was removed all as one piece. Cautery was then used to control hemostasis around the wound edges. Once that was completed, the deep subcutaneous tissues were reapproximated with interrupted 3-0 chromic sutures leaving the skin open. Once this was completed, the wound was irrigated and covered with 4 x 4s thus ending the procedure. The patient tolerated the procedure well and was sent back to the recovery room in stable condition.
[2020-08-03] MEDS ORDERED: fentaNYL 100 MCG/2 ML INJECTION (J3010) IV PRN (08:45)
[2020-08-03] MEDS ORDERED: LR 1,000 ML IV SCH (08:45)
[2020-08-03] MEDS ORDERED: NORCO, ANEXSIA 5/325MG TABLET (HYDROcodone/ACETAMINOPHEN) PO PRN (08:45)
[2020-08-03] MEDS ORDERED: ONDANSETRON 4MG/2ML VIAL IV PRN (08:45)
[2020-08-03] MEDS ORDERED: oxyCODONE 5MG TAB PO PRN (08:45)
[2020-08-03 10:10] VITALS: BP 128/72
== END 2020-08-03 10:24 | disposition home or self-care (01) ==
LOC: M SDC 06:23
PROVIDERS: ATTEND Surgery
DX: L05.91 Pilonidal cyst without abscess (principal); E03.9 Hypothyroidism, unspecified; F17.210 Nicotine dependence, cigarettes, uncomplicated; F32.9 Major depressive disorder, single episode, unspecified; F41.9 Anxiety disorder, unspecified; G43.909 Migraine, unspecified, not intractable, without status migrainosus; I49.9 Cardiac arrhythmia, unspecified; K21.9 Gastro-esophageal reflux disease without esophagitis; M12.9 Arthropathy, unspecified; M79.7 Fibromyalgia; R06.83 Snoring; Z79.899 Other long term (current) drug therapy; Z98.51 Tubal ligation status
CPT/HCPCS: 11771; 88304; J1885; J2250; J2400; J2405; J3010

== ENCOUNTER → 2020-08-08 | Outpatient (REF) | payer OTHER ==
[~2020-08-08] MED LIST changes: -LIDOCAINE 1% MDV 20ML VIAL SQ PRN; -LR 1,000 ML IV ONE
== END ==
LOC: M LAB REF 10:02
PROVIDERS: ATTEND Surgery
DX: K91.89 Other postprocedural complications and disorders of digestive system (principal); Z98.84 Bariatric surgery status; R19.7 Diarrhea, unspecified

== ENCOUNTER → 2020-10-15 | Outpatient (CLI) | payer OTHER ==
[~2020-10-15] MED LIST changes: +ISOVUE-300 61% 50ML VIAL As Ordered ONE; +LIDOCAINE 1% MDV 20ML VIAL As Ordered ONE; +TRIAMCINOLONE ACETONIDE SUSP 40 MG/ML VIAL (J3301) As Ordered ONE
--- NOTE | 2020-10-15 14:50 | REP ---
INDICATION: RT KNEE OA. COMPARISON: None TECHNIQUE: The procedure was performed by PJ Ardon, under the direct supervision of Dr. Shipley. The benefits and risks of the procedure were explained to the patient, and an informed consent was obtained. Directly prior to the start of the procedure, a formal time-out was completed in the procedure room. The right tibiofemoral joint space was localized using fluoroscopic guidance. The skin was prepped and draped in a sterile fashion. Approximately 5 mL of 1% Lidocaine 10 mg/ml was used as a local anesthetic. Using fluoroscopic guidance, a #22 gauge spinal needle was inserted and advanced into the right tibiofemoral joint space. Approximately 1 mL of Isovue 300 was injected to verify placement. Six mL of a solution containing 5 mL 1% lidocaine 10 mg/ml and 1 mL Kenalog 40 milligrams/milliliter was injected into the joint space. The needle was removed and hemostasis was achieved. FINDINGS: The patient tolerated the procedure well and there were no immediate complications. IMPRESSION: 1. Fluoroscopic guided intra-articular pain injection of the right knee. 0.1 minutes of fluoroscopy time was utilized for this procedure. Some fluoroscopic images are performed with last image hold technology. These images require no additional radiation. <Electronically signed by Renetta Leonardo > 10/15/20 1449 <Electronically signed by Fer Shipley > 10/15/20 1445
== END ==
LOC: M RADPRO 12:53
PROVIDERS: ATTEND Physician Assistant
DX: M17.11 Unilateral primary osteoarthritis, right knee (principal)
CPT/HCPCS: 20610; 77002; J3301; Q9967

== ENCOUNTER → 2021-01-18 | Outpatient (CLI) | payer OTHER ==
[~2021-01-18] MED LIST changes: -ISOVUE-300 61% 50ML VIAL As Ordered ONE; -LIDOCAINE 1% MDV 20ML VIAL As Ordered ONE; +OMEP40CA4 PO; -OMEP40CA97 PO; -TRIAMCINOLONE ACETONIDE SUSP 40 MG/ML VIAL (J3301) As Ordered ONE
[2021-01-18 17:56] LABS: BASO # 0.1 10^3/uL (0.0-0.2); BASO % 0.6 % (0.0-1.0); EOS # 0.3 10^3/uL (0.0-0.5); EOS % 3.4 % (0.0-3.0); HEMATOCRIT 42.6 % (36.0-47.0); HEMOGLOBIN 13.9 g/dl (12.0-15.5); LYMPH % 31.2 % (24.0-44.0); MEAN CORPUSCULAR HEMOGLOBIN 30.4 pg (27.0-33.0); MEAN CORPUSCULAR HGB CONC 32.6 g/dl (32.0-36.5); MEAN CORPUSCULAR VOLUME 93.2 fl (80.0-96.0); MONO # 0.7 10^3/uL (0.0-0.8); MONO % 7.6 % (2.0-8.0); NEUTROPHILS # 5.5 10^3/uL (1.5-8.5); PLATELET COUNT, AUTOMATED 273 10^3/uL (150-450); RED BLOOD COUNT 4.57 10^6/uL (4.00-5.40); WHITE BLOOD COUNT 9.7 10^3/uL (4.0-10.0)
[2021-01-18 18:01] LABS: ALBUMIN 3.6 GM/DL (3.2-5.2); ALT/SGPT 21 U/L (12-78); BILIRUBIN,TOTAL 0.2 MG/DL (0.2-1.0); BLOOD UREA NITROGEN 13 MG/DL (7-18); CALCIUM LEVEL 8.9 MG/DL (8.5-10.1); CARBON DIOXIDE LEVEL 28 MEQ/L (21-32); CHLORIDE LEVEL 108 MEQ/L (98-107); CHOLESTEROL LEVEL 164 MG/DL (<200); CHOLESTEROL RISK RATIO 2.411 (<5); CREATININE FOR GFR 0.72 MG/DL (0.55-1.30); FERRITIN 13 NG/ML (8-252); GLOMERULAR FILTRATION RATE > 60.0 (>58); GLUCOSE, FASTING 89 MG/DL (70-100); HDL CHOLESTEROL 68 MG/DL (>40); IRON (FE) 57 UG/DL (50-170); LDL CHOLESTEROL 73 MG/DL (<100); NON-HDL-C 96 MG/DL; POTASSIUM SERUM 4.6 MEQ/L (3.5-5.1); SODIUM LEVEL 140 MEQ/L (136-145); TOTAL PROTEIN 6.6 GM/DL (6.4-8.2); TRIGLYCERIDES LEVEL 114 MG/DL (<150)
[2021-01-18 18:07] LABS: TOTAL 25(OH) VITAMIN D 51.3 NG/ML (30.0-100.0); VITAMIN B12 LEVEL > 2000 PG/ML (247-911)
[2021-01-18 18:12] LABS: HEMATOCRIT 42.4 % (36.0-47.0)
== END ==
LOC: M PLALAB 13:52
PROVIDERS: ATTEND Physician Assistant Medical
DX: Z98.84 Bariatric surgery status (principal)

== ENCOUNTER → 2021-01-18 | Outpatient (CLI) | payer OTHER ==
[2021-01-18 17:57] LABS: BASO % 0.4 % (0.0-1.0); EOS # 0.3 10^3/uL (0.0-0.5); EOS % 3.2 % (0.0-3.0); HEMATOCRIT 41.8 % (36.0-47.0); HEMOGLOBIN 13.8 g/dl (12.0-15.5); LYMPH # 2.9 10^3/uL (1.5-5.0); LYMPH % 31.3 % (24.0-44.0); MEAN CORPUSCULAR HEMOGLOBIN 30.7 pg (27.0-33.0); MEAN CORPUSCULAR VOLUME 93.1 fl (80.0-96.0); MONO # 0.7 10^3/uL (0.0-0.8); MONO % 7.4 % (2.0-8.0); NEUTROPHILS # 5.4 10^3/uL (1.5-8.5); NEUTROPHILS % 57.4 % (36.0-66.0); PLATELET COUNT, AUTOMATED 274 10^3/uL (150-450); RED BLOOD COUNT 4.49 10^6/uL (4.00-5.40); WHITE BLOOD COUNT 9.4 10^3/uL (4.0-10.0)
[2021-01-18 18:02] LABS: ALBUMIN 3.6 GM/DL (3.2-5.2); ALT/SGPT 22 U/L (12-78); BILIRUBIN,TOTAL 0.2 MG/DL (0.2-1.0); BLOOD UREA NITROGEN 13 MG/DL (7-18); CALCIUM LEVEL 8.9 MG/DL (8.5-10.1); CARBON DIOXIDE LEVEL 27 MEQ/L (21-32); CHLORIDE LEVEL 108 MEQ/L (98-107); CREATININE FOR GFR 0.69 MG/DL (0.55-1.30); FERRITIN 12 NG/ML (8-252); GLOMERULAR FILTRATION RATE > 60.0 (>58); GLUCOSE, FASTING 86 MG/DL (70-100); IRON (FE) 56 UG/DL (50-170); MAGNESIUM LEVEL 2.1 MG/DL (1.8-2.4); PERCENT SATURATION 16.8 % (13.2-45.0); PHOSPHORUS LEVEL 5.1 MG/DL (2.5-4.9); POTASSIUM SERUM 4.4 MEQ/L (3.5-5.1); SODIUM LEVEL 140 MEQ/L (136-145); TOTAL IRON BINDING CAPACITY 333 UG/DL (250-450); TOTAL PROTEIN 6.7 GM/DL (6.4-8.2)
[2021-01-18 18:08] LABS: TOTAL 25(OH) VITAMIN D 53.7 NG/ML (30.0-100.0); VITAMIN B12 LEVEL > 2000 PG/ML (247-911)
[2021-01-18 18:11] LABS: HEMATOCRIT 42.4 % (36.0-47.0)
[2021-01-18 18:39] LABS: HEMOGLOBIN A1c 5.3 %
== END ==
LOC: M PLALAB 13:55
PROVIDERS: ATTEND Physician Assistant
DX: K91.2 Postsurgical malabsorption, not elsewhere classified (principal); Z98.84 Bariatric surgery status; E55.9 Vitamin D deficiency, unspecified; Z86.39 Personal history of other endocrine, nutritional and metabolic disease

== ENCOUNTER → 2021-01-22 | Outpatient (CLI) | payer OTHER ==
--- NOTE | 2021-01-22 19:27 | REP ---
INDICATION: SACOCOCCYGEAL DISORDERS. COMPARISON: None. TECHNIQUE: There are multiple ultrasonographic images of the soft tissues overlying the sacrum. FINDINGS: The patient indicates that she had pilonidal cyst surgery earlier this year. Scanning is performed in the area where the patient complains of pain. There is a somewhat linear fluid collection with slightly irregular margins in the soft tissues overlying the sacrum measuring 2.6 mm transversely by 21 mm in length. IMPRESSION: There is a linear fluid collection as described in the soft tissues overlying the sacrum in the area where the patient complains of pain. <Electronically signed by Tesfaye Moya > 01/22/21 192
== END ==
LOC: M RAD 16:15
PROVIDERS: ATTEND Surgery
DX: M53.3 Sacrococcygeal disorders, not elsewhere classified (principal)

== ENCOUNTER → 2021-07-15 | Outpatient (CLI) | payer OTHER ==
[~2021-07-15] MED LIST changes: +ISOVUE-300 61% 50ML VIAL As Ordered ONE; +LIDOCAINE 1% MDV 20ML VIAL As Ordered ONE; -OMEP-221 PO; +OMEP40CA5 PO; +TRIAMCINOLONE ACETONIDE SUSP 40 MG/ML VIAL (J3301) As Ordered ONE
== END ==
LOC: M RADPRO 10:57
PROVIDERS: ATTEND Physician Assistant Surgical
DX: M17.0 Bilateral primary osteoarthritis of knee (principal)
CPT/HCPCS: 20610; 77002; J3301; Q9967

== ENCOUNTER 2021-07-24 10:59 | Emergency (ER) | payer OTHER ==
[~2021-07-24] VITALS: Ht 160 cm; Wt 83.2 kg
[~2021-07-24 10:59] MED LIST changes: -ISOVUE-300 61% 50ML VIAL As Ordered ONE; -LIDOCAINE 1% MDV 20ML VIAL As Ordered ONE; -TRIAMCINOLONE ACETONIDE SUSP 40 MG/ML VIAL (J3301) As Ordered ONE
[2021-07-24 11:01] VITALS: BP 132/75
[2021-07-24] MEDS ORDERED: PRED20TA (11:10)
[2021-07-24] MEDS ORDERED: GABA-282 (11:10)
[2021-07-24 12:53] LABS: BASO % 0.1 % (0.0-1.0); EOS % 0.1 % (0.0-3.0); HEMATOCRIT 46.4 % (36.0-47.0); HEMOGLOBIN 15.4 g/dl (12.0-15.5); LYMPH # 0.8 10^3/uL (1.5-5.0); MEAN CORPUSCULAR HEMOGLOBIN 30.6 pg (27.0-33.0); MEAN CORPUSCULAR HGB CONC 33.2 g/dl (32.0-36.5); MEAN CORPUSCULAR VOLUME 92.2 fl (80.0-96.0); MONO # 0.5 10^3/uL (0.0-0.8); MONO % 4.7 % (2.0-8.0); NEUTROPHILS # 8.7 10^3/uL (1.5-8.5); NEUTROPHILS % 86.5 % (36.0-66.0); PLATELET COUNT, AUTOMATED 243 10^3/uL (150-450); RED BLOOD COUNT 5.03 10^6/uL (4.00-5.40); WHITE BLOOD COUNT 10.1 10^3/uL (4.0-10.0)
[2021-07-24 13:04] LABS: INR 0.87; PROTHROMBIN TIME 12.2 SECONDS (12.7-14.5)
[2021-07-24 13:07] LABS: D-DIMER QUANT 292.7 ng/ml (<500)
[2021-07-24 13:12] LABS: ERYTHROCYTE SEDIMENTATION RATE 13 mm/hr (0-20)
[2021-07-24] MEDS ORDERED: BENZ200C70 PO (14:05)
[2021-07-24] MEDS ORDERED: NYST50SS PO (14:09)
== END 2021-07-24 14:26 | disposition home or self-care (01) ==
LOC: M ED 10:59
DX: J04.0 Acute laryngitis (principal); I10 Essential (primary) hypertension; K21.9 Gastro-esophageal reflux disease without esophagitis; E78.5 Hyperlipidemia, unspecified; F41.9 Anxiety disorder, unspecified; F32.9 Major depressive disorder, single episode, unspecified; E03.9 Hypothyroidism, unspecified; Z98.84 Bariatric surgery status; F17.200 Nicotine dependence, unspecified, uncomplicated; Z79.899 Other long term (current) drug therapy

== ENCOUNTER → 2021-09-14 | Outpatient (CLI) | payer OTHER ==
[~2021-09-14] MED LIST changes: +BENZ200C70 PO; +GABA-282; +NYST50SS PO; +PRED20TA
[2021-09-14 07:16] LABS: HEMATOCRIT 41.3 % (36.0-47.0); HEMOGLOBIN 13.8 g/dl (12.0-15.5); MEAN CORPUSCULAR HEMOGLOBIN 30.3 pg (27.0-33.0); MEAN CORPUSCULAR HGB CONC 33.4 g/dl (32.0-36.5); MEAN CORPUSCULAR VOLUME 90.8 fl (80.0-96.0); PLATELET COUNT, AUTOMATED 280 10^3/uL (150-450); RED BLOOD COUNT 4.55 10^6/uL (4.00-5.40); WHITE BLOOD COUNT 8.7 10^3/uL (4.0-10.0)
[2021-09-14 08:52] LABS: ALBUMIN 3.3 GM/DL (3.2-5.2); ALT/SGPT 22 U/L (12-78); BILIRUBIN,TOTAL 0.3 MG/DL (0.2-1.0); BLOOD UREA NITROGEN 16 MG/DL (7-18); CARBON DIOXIDE LEVEL 30 MEQ/L (21-32); CHLORIDE LEVEL 107 MEQ/L (98-107); CHOLESTEROL LEVEL 153 MG/DL (<200); CHOLESTEROL RISK RATIO 2.283 (<5); CREATININE FOR GFR 0.85 MG/DL (0.55-1.30); FREE T4 0.86 NG/DL (0.76-1.46); GLOMERULAR FILTRATION RATE > 60.0 (>58); GLUCOSE, FASTING 97 MG/DL (70-100); HDL CHOLESTEROL 67 MG/DL (>40); LDL CHOLESTEROL 74 MG/DL (<100); MAGNESIUM LEVEL 2.4 MG/DL (1.8-2.4); NON-HDL-C 86 MG/DL; POTASSIUM SERUM 3.9 MEQ/L (3.5-5.1); SODIUM LEVEL 144 MEQ/L (136-145); TOTAL PROTEIN 6.2 GM/DL (6.4-8.2); TRIGLYCERIDES LEVEL 58 MG/DL (<150)
[2021-09-14 09:40] LABS: TOTAL 25(OH) VITAMIN D 40.5 NG/ML (30.0-100.0); VITAMIN B12 LEVEL 1123 PG/ML
[2021-09-14 09:41] LABS: FOLATE 16.7 NG/ML
== END ==
LOC: M LAB 06:31
PROVIDERS: ATTEND Physician Assistant Medical
DX: E03.9 Hypothyroidism, unspecified (principal); E78.2 Mixed hyperlipidemia; R60.9 Edema, unspecified; E55.9 Vitamin D deficiency, unspecified; G43.009 Migraine without aura, not intractable, without status migrainosus; Z98.84 Bariatric surgery status

== ENCOUNTER → 2021-09-21 | Outpatient (CLI) | payer OTHER ==
[~2021-09-21] MED LIST changes: +ISOVUE-300 61% 50ML VIAL As Ordered ONE; +LIDOCAINE 1% MDV 20ML VIAL As Ordered ONE; +methylPREDNISolone SUSP 40MG/ML 1ML VIAL (DEPO MEDROL) As Ordered ONE
== END ==
LOC: M RADPRO 10:25
PROVIDERS: ATTEND Physician Assistant Surgical
DX: M17.0 Bilateral primary osteoarthritis of knee (principal)
CPT/HCPCS: 20610; 77002; J1030; Q9967

== ENCOUNTER → 2022-01-13 | Outpatient (CLI) | payer OTHER ==
[~2022-01-13] MED LIST changes: -ISOVUE-300 61% 50ML VIAL As Ordered ONE; -LIDOCAINE 1% MDV 20ML VIAL As Ordered ONE; -ZONI100C17 PO; +ZONI100C67 PO; -methylPREDNISolone SUSP 40MG/ML 1ML VIAL (DEPO MEDROL) As Ordered ONE
== END ==
LOC: M WHC 10:43
PROVIDERS: ATTEND Physician Assistant Medical
DX: Z12.31 Encounter for screening mammogram for malignant neoplasm of breast (principal); R92.8 Other abnormal and inconclusive findings on diagnostic imaging of breast

== ENCOUNTER → 2022-04-26 | Outpatient (REF) | payer OTHER ==
[2022-04-26 15:08] LABS: BASO # 0.1 10^3/uL (0.0-0.2); BASO % 0.8 % (0.0-1.0); EOS # 0.3 10^3/uL (0.0-0.5); EOS % 3.6 % (0.0-3.0); HEMATOCRIT 40.3 % (36.0-47.0); HEMOGLOBIN 13.4 g/dl (12.0-15.5); LYMPH # 3.1 10^3/uL (1.5-5.0); LYMPH % 36.9 % (24.0-44.0); MEAN CORPUSCULAR HEMOGLOBIN 31.2 pg (27.0-33.0); MEAN CORPUSCULAR HGB CONC 33.3 g/dl (32.0-36.5); MEAN CORPUSCULAR VOLUME 93.7 fl (80.0-96.0); MONO # 0.6 10^3/uL (0.0-0.8); MONO % 7.5 % (2.0-8.0); NEUTROPHILS # 4.3 10^3/uL (1.5-8.5); NEUTROPHILS % 50.8 % (36.0-66.0); PLATELET COUNT, AUTOMATED 238 10^3/uL (150-450); WHITE BLOOD COUNT 8.5 10^3/uL (4.0-10.0)
[2022-04-26 15:41] LABS: ERYTHROCYTE SEDIMENTATION RATE 12 mm/hr (0-20)
[2022-04-26 16:08] LABS: C REACTIVE PROTEIN QUANTITATIV < 0.30 MG/DL (0.00-0.30); RHEUMATOID FACTOR QUANT < 10.0 IU/ML (<15.0); URIC ACID 4.8 MG/DL (2.6-6.0)
== END ==
LOC: M PLALAB 12:53
PROVIDERS: ATTEND Physician Assistant Surgical
DX: M17.0 Bilateral primary osteoarthritis of knee (principal)

== ENCOUNTER → 2022-04-26 | Outpatient (REF) | payer OTHER ==
[2022-04-26 15:08] LABS: HEMATOCRIT 41.1 % (36.0-47.0); HEMOGLOBIN 13.3 g/dl (12.0-15.5); MEAN CORPUSCULAR HEMOGLOBIN 30.5 pg (27.0-33.0); MEAN CORPUSCULAR HGB CONC 32.4 g/dl (32.0-36.5); MEAN CORPUSCULAR VOLUME 94.3 fl (80.0-96.0); PLATELET COUNT, AUTOMATED 240 10^3/uL (150-450); RED BLOOD COUNT 4.36 10^6/uL (4.00-5.40); WHITE BLOOD COUNT 8.2 10^3/uL (4.0-10.0)
[2022-04-26 16:15] LABS: ALBUMIN 3.3 GM/DL (3.2-5.2); ALT/SGPT 17 U/L (12-78); BILIRUBIN,TOTAL 0.5 MG/DL (0.2-1.0); BLOOD UREA NITROGEN 17 MG/DL (7-18); CALCIUM LEVEL 9.2 MG/DL (8.5-10.1); CARBON DIOXIDE LEVEL 30 MEQ/L (21-32); CHLORIDE LEVEL 103 MEQ/L (98-107); CHOLESTEROL LEVEL 163 MG/DL (<200); CHOLESTEROL RISK RATIO 2.232 (<5); CREATININE FOR GFR 0.89 MG/DL (0.55-1.30); FERRITIN 27 NG/ML (8-252); FREE T4 0.94 NG/DL (0.76-1.46); GLOMERULAR FILTRATION RATE > 60.0 (>58); GLUCOSE, FASTING 96 MG/DL (70-100); HDL CHOLESTEROL 73 MG/DL (>40); IRON (FE) 99 UG/DL (50-170); LDL CHOLESTEROL 77 MG/DL (<100); NON-HDL-C 90 MG/DL; PERCENT SATURATION 30.3 % (13.2-45.0); SODIUM LEVEL 138 MEQ/L (136-145); TOTAL IRON BINDING CAPACITY 327 UG/DL (250-450); TOTAL PROTEIN 6.4 GM/DL (6.4-8.2); TRIGLYCERIDES LEVEL 65 MG/DL (<150)
[2022-04-26 17:13] LABS: FOLATE 7.8 NG/ML; FOLLICLE STIMULATING HORMONE 8.4 mIU/mL; LUTEINIZING HORMONE 4.9 mIU/mL; TOTAL 25(OH) VITAMIN D 46.6 NG/ML (30.0-100.0); VITAMIN B12 LEVEL > 2000 PG/ML
== END ==
LOC: M PLALAB 14:14
PROVIDERS: ATTEND Physician Assistant Medical
DX: E55.9 Vitamin D deficiency, unspecified (principal); E78.2 Mixed hyperlipidemia; R53.82 Chronic fatigue, unspecified; E03.9 Hypothyroidism, unspecified; K21.9 Gastro-esophageal reflux disease without esophagitis; Z98.890 Other specified postprocedural states; N95.1 Menopausal and female climacteric states; R68.82 Decreased libido

== ENCOUNTER → 2023-01-11 | Outpatient (CLI) | payer OTHER ==
[~2023-01-11] MED LIST changes: +NYST-38 PO; -NYST50SS PO
== END ==
LOC: M RAD 16:17
PROVIDERS: ATTEND Physician Assistant Medical
DX: M25.521 Pain in right elbow (principal)

== ENCOUNTER → 2023-03-08 | Outpatient (REF) ==
[~2023-03-08] MED LIST changes: -AMIT25TA17; +AMIT25TA19; -PREG200C PO; +PREG200C2 PO
== END ==
LOC: M PLAIMG 12:06
PROVIDERS: ATTEND Internal Medicine
DX: R52 Pain, unspecified (principal)

== ENCOUNTER → 2023-09-11 | Outpatient (CLI) | payer OTHER ==
[2023-09-11 13:07] LABS: HEMATOCRIT 39.3 % (36.0-47.0); HEMOGLOBIN 12.9 g/dl (12.0-15.5); MEAN CORPUSCULAR HEMOGLOBIN 29.2 pg (27.0-33.0); MEAN CORPUSCULAR HGB CONC 32.8 g/dl (32.0-36.5); MEAN CORPUSCULAR VOLUME 88.9 fl (80.0-96.0); PLATELET COUNT, AUTOMATED 262 10^3/uL (150-450); RED BLOOD COUNT 4.42 10^6/uL (4.00-5.40); WHITE BLOOD COUNT 8.7 10^3/uL (4.0-10.0)
[2023-09-11 13:36] LABS: THYROID STIMULATING HORMONE 1.244 uIU/ML (0.55-4.78)
[2023-09-11 13:39] LABS: FREE T4 0.98 NG/DL (0.89-1.76)
[2023-09-11 13:40] LABS: ALBUMIN 3.4 G/DL (3.2-5.2); ALKALINE PHOSPHATASE 47 U/L (46-116); ALT/SGPT 12 U/L (7.0-40); AST/SGOT 12 U/L (<34); BILIRUBIN,TOTAL 0.3 MG/DL (0.3-1.2); BLOOD UREA NITROGEN 15 MG/DL (9-23); CALCIUM LEVEL 8.6 MG/DL (8.5-10.1); CARBON DIOXIDE LEVEL 30 MMOL/L (20-31); CHLORIDE LEVEL 108 MMOL/L (98-107); CHOLESTEROL LEVEL 149 MG/DL (<200); CHOLESTEROL RISK RATIO 2.42 (<5); CREATININE FOR GFR 0.83 MG/DL (0.55-1.30); GLOMERULAR FILTRATION RATE > 60.0 (>58); GLUCOSE, FASTING 100 MG/DL (60-100); HDL CHOLESTEROL 61.5 MG/DL (>40); LDL CHOLESTEROL 75.5 MG/DL (<100); NON-HDL-C 87.5 MG/DL; POTASSIUM SERUM 3.5 MMOL/L (3.5-5.1); SODIUM LEVEL 139 MMOL/L (136-145); TOTAL PROTEIN 6.2 G/DL (5.7-8.2); TRIGLYCERIDES LEVEL 60 MG/DL (<150)
== END ==
LOC: M LAB 12:17
PROVIDERS: ATTEND Physician Assistant Medical
DX: E55.9 Vitamin D deficiency, unspecified (principal)

== ENCOUNTER 2025-02-19 12:32 | Day surgery (SDC) | payer OTHER ==
[~2025-02-19] VITALS: Ht 160 cm; Wt 85.1 kg
[~2025-02-19 12:32] MED LIST changes: +ADVA230A INH; +BACL10TA2 PO; +BIOT1CAP2 PO; +BUME2TAB3 PO; +CALC200T3 PO; +DULO1CAP5 PO; +DULO1CAP6 PO; +FAMO40TA3 PO; +GABA-1172; -GABA-282; +GABA-284 PO; +HYDR-3363 PO; +JARD1TAB PO; +PANT40TA29 PO; +ROSU20TA86 PO
[2025-02-19] MEDS ORDERED: LIDOCAINE 2% 100 MG/5 ML SDV (FOR ANES.) As Ordered ONE (13:31)
[2025-02-19 14:27] VITALS: BP 107/59; O2SAT 100
== END 2025-02-19 14:45 | disposition home or self-care (01) ==
LOC: M OPP 12:32
PROVIDERS: ATTEND Surgery
DX: Z12.11 Encounter for screening for malignant neoplasm of colon (principal); K64.8 Other hemorrhoids; K64.4 Residual hemorrhoidal skin tags; K44.9 Diaphragmatic hernia without obstruction or gangrene; K29.60 Other gastritis without bleeding; R10.13 Epigastric pain; Z98.84 Bariatric surgery status; G47.30 Sleep apnea, unspecified; Z79.84 Long term (current) use of oral hypoglycemic drugs; Z79.899 Other long term (current) drug therapy; J45.909 Unspecified asthma, uncomplicated; F17.210 Nicotine dependence, cigarettes, uncomplicated
CPT/HCPCS: 43239; 45378; 88305; J3010

== ENCOUNTER 2025-04-18 10:51 | Emergency (ER) | payer OTHER ==
[~2025-04-18] VITALS: Ht 157.5 cm; Wt 85.9 kg
[~2025-04-18 10:51] MED LIST changes: +ZOLP10TA11; -ZOLP10TA2
[2025-04-18] MEDS ORDERED: POTA10CA70 (11:07)
[2025-04-18 11:23] LABS: BASO # 0.0 10^3/uL (0.0-0.2); BASO % 0.3 % (0.0-1.0); EOS # 0.1 10^3/uL (0.0-0.5); EOS % 1.0 % (0.0-3.0); LYMPH # 2.5 10^3/uL (1.5-5.0); LYMPH % 19.9 % (24.0-44.0); MONO # 1.0 10^3/uL (0.0-0.8); MONO % 8.3 % (2.0-8.0); NEUTROPHILS # 8.8 10^3/uL (1.5-8.5); NEUTROPHILS % 70.3 % (36.0-66.0); PLATELET COUNT, AUTOMATED 363 10^3/uL (150-450)
[2025-04-18 11:45] LABS: ALT/SGPT 14.0 U/L (7.0-40); AST/SGOT 15.0 U/L (<34); CALCIUM LEVEL 9.2 MG/DL (8.5-10.1); CARBON DIOXIDE LEVEL 26.0 MMOL/L (20-31); CHLORIDE LEVEL 106.0 MMOL/L (98-107); CREATININE FOR GFR 0.91 MG/DL (0.55-1.30); GLOMERULAR FILTRATION RATE 77.3 (>58); POTASSIUM SERUM 3.8 MMOL/L (3.5-5.1); SODIUM LEVEL 140.0 MMOL/L (136-145)
[2025-04-18] MEDS ORDERED: ISOVUE-370 76% 100 ML VIAL As Ordered ONE (12:59)
[2025-04-18] MEDS: MORPHINE 4 MG/ML 1 ML VIAL IV ONE (13:32)
[2025-04-18] MEDS: NS (Normal Saline) 0.9% 1,000 ML IV ONE (13:32)
[2025-04-18] MEDS: ONDANSETRON 4MG/2ML VIAL IV ONE (13:32)
[2025-04-18] MEDS: GASTROGRAFIN SOLUTION 30ML PO SCH (13:33)
[2025-04-18] MEDS: PANTOPRAZOLE 40MG VIAL IV ONE (13:33)
[2025-04-18] MEDS: MORPHINE 2 MG/ML 1 ML VIAL IV ONE (14:31)
[2025-04-18 15:26] VITALS: TEMP 96.7
[2025-04-18] MEDS: HYDROMORPHONE HCL 0.5 MG/0.5 ML SYRINGE IV PRN (15:39)
[2025-04-18] MEDS ORDERED: CARA1TAB6 PO (15:49)
[2025-04-18] MEDS ORDERED: PROT1TAB2 PO (15:49)
[2025-04-18 16:00] VITALS: BP 111/64; O2SAT 97
== END 2025-04-18 16:09 | disposition home or self-care (01) ==
LOC: M ED 10:51
DX: K29.00 Acute gastritis without bleeding (principal); K59.00 Constipation, unspecified; E78.5 Hyperlipidemia, unspecified; F17.210 Nicotine dependence, cigarettes, uncomplicated; Z79.2 Long term (current) use of antibiotics; Z79.51 Long term (current) use of inhaled steroids; Z79.899 Other long term (current) drug therapy
CPT/HCPCS: 74018; 74177; 80053; 83605; 83690; 85025; 93005; 96374; 96375; 96376; 99284; J1171; J2405; J2470; Q9963; Q9967